=== PATIENT | female | born 1960 | race Caucasian/White ===

== ENCOUNTER → 2017-10-19 13:13 | Outpatient (CLI) | payer BC, SELFPAY ==
[2017-10-19 13:43] LABS: HCT 42.4 % (36.0-46.0); HGB 14.2 g/dL (12.0-15.5); Mean Corp. HGB Concentration 33.5 g/dL (32.0-36.0); Mean Corpuscular Hemoglobin 31.7 pg (27.0-33.0); Mean Corpuscular Volume 94.6 fL (80-95); Mean Platelet Volume 10.6 fL (8.0-11.0); Platelet Count 249 x1000/uL (130-400); RBC 4.48 m/cumm (4.00-5.20); White Blood Cell Count 8.29 k/cumm (4.4-10.8)
[2017-10-19 14:17] LABS: ALT 39 U/L (12-78); AST 17 U/L (15-37); Albumin 3.9 g/dL (3.4-5.0); Alkaline Phosphatase 80 U/L (46-116); BUN 20 mg/dL (7-18); Bilirubin, Total 0.2 mg/dL (0.2-1.0); CREATININE 1.33 mg/dL (0.55-1.02); Calcium 8.7 mg/dL (8.5-10.1); Chloride 104 mmol/L (98-107); Estimated GFR 41.12 (mL/min/1.73m2); Glucose 97 mg/dL (70-100); Potassium 3.9 mmol/L (3.5-5.1); Sodium 140 mmol/L (136-145); TSH (W/Ref FT4) 1.52 uIU/mL (0.358-3.74); Total Protein 7.4 g/dL (6.4-8.2)
== END ==
PROVIDERS: PCP Family Medicine; Visit Provider Nurse Practitioner Psychiatric/Mental Health
DX: F32.9 Major depressive disorder, single episode, unspecified (principal)
CPT/HCPCS: 36415; 80053; 85027; 84443

== ENCOUNTER 2018-03-10 09:52 | Emergency (ER) | payer BC, SELFPAY ==
[2018-03-10 09:56] VITALS: BP 117/64; PULSE 103; RESP 16; TEMP 36.8; O2SAT 100
--- NOTE | 2018-03-10 10:11 | W.ED.GENAD ---
Discharge Plan Disposition Patient Disposition: HOME Condition: Improving Discharge Details Chief Complaint: Cellulitis Clinical Impression: Cellulitis of suprapubic region Primary Care Provider: Shahla Ball ED Provider: Bobby Maria Home Meds and New Rx's Prescriptions: New amoxicillin-pot clavulanate 875-125 mg tablet 1 tab PO BID 10 Days Qty: 20 RF: 0 Continued duloxetine 20 mg capsule,delayed release(DR/EC) 20 mg PO DAILY Qty: 30 RF: 1 fluvoxamine 100 MG tablet 150 mg PO BID RF: 0 rlmkrvha-nucipcf-gfas-lutein [ESSENTIAL Balance with Lutein] 1 EACH tablet 1 ea PO QAM RF: 0 lamotrigine [Lamictal] 100 MG tablet 100 mg PO BID Qty: 60 RF: 0 aripiprazole [Abilify] 2 MG tablet 2 mg PO DAILY RF: 0 trazodone 100 MG tablet 200 mg PO HS Qty: 60 RF: 0 triamcinolone acetonide 15 GM cream 15 gm Topical BID Qty: 1 RF: 0 zuafvtlfyb-mlxmiastgnmqr-mpei 1 EACH tablet 1 - 2 tab PO Q8H PRN PRNQty: 25 RF: 1 methylphenidate HCl 10 mg tablet 10 mg PO BID RF: 0 methylphenidate HCl 5 mg tablet 5 mg PO QAM Qty: 60 RF: 0 ibuprofen 200 MG tablet 600 mg PO TID PRNRF: 0 alprazolam 2 mg tablet extended release 24 hr 1 mg PO HS RF: 0 Discharge Instructions Instructions: Abscess (ED) Additional Instructions: We will ask our care management team to help arrange follow-up for you in general surgery clinic for recheck. Please take antibiotics as prescribed. Return if you develop worsening discomfort, swelling, drainage from the area, fever, or any other acute concerns. Continue all of your regular medication Medical Decision Making 58-year-old female presents with induration and erythema of her mons pubis, which she states is similar to previous episodes of hidradenitis Yordan that required drainage. She has not have a fever, but is mildly tachycardic and tender to exam. IV placed, labs obtained, imaging study with CT ordered to evaluate for abscess versus fistulous tract or cellulitis and induration. Patient does have a mildly elevated white blood cell count, but there is no evidence of deep abscess or fluid collection. She is soft tissue stranding distant with the induration on exam. Given a dose of Unasyn in the emergency department and I will place her on a course of Augmentin. Given the question of hidradenitis of vertebral I will have her follow-up with general surgery and ask care management to arrange a follow-up. HPI General Mode of arrival: ambulatory. Date/Time Provider Initiated Documentation: 03/10/18 10:05. Limitations to Documentation: no limitations. Information obtained by: patient. History of Present Illness 58 year old F presents to the emergency department with the chief complaint of Cellulitis of the above pubis, described as moderate and similar to prior episodes, Quality is described as dull, and is localized to the abdomen and pelvis. Patient reports no radiation. Patient started experiencing this hour(s) and it has been constant. No relieving factors improve symptom(s), No exacerbating factors reported . Patient notes no other symptoms.. Patient did receive the following treatments prior to arrival, none Related Data Home Medications Medication Instructions Recorded Confirmed fluvoxamine 150 mg PO BID tab-cap 07/30/12 01/13/18 dqiransj-bwkrrox-pwdm-lutein 1 ea PO QAM 07/30/12 01/13/18 [ESSENTIAL Balance with Lutein] ibuprofen 600 mg PO TID PRN 01/02/14 01/13/18 lamotrigine [Lamictal] 100 mg PO BID #60 tab-cap 03/28/15 01/13/18 aripiprazole [Abilify] 2 mg PO DAILY 09/12/15 01/13/18 trazodone 200 mg PO HS #60 tab-cap 05/29/16 01/13/18 triamcinolone acetonide 15 gm TOPICAL BID #1 script 05/29/16 01/13/18 vsekyektyn-ffnvflvemaurj-xyzh 1 - 2 tab PO Q8H PRN PRN #25 12/17/16 01/13/18 tab-cap alprazolam ER 2 mg tablet,extended 1 mg PO HS tab 01/13/18 01/13/18 release 24 hr duloxetine 20 mg capsule,delayed 20 mg PO DAILY #30 cap 01/13/18 01/13/18 release methylphenidate 10 mg tablet 10 mg PO BID tab-cap 01/13/18 01/13/18 methylphenidate 5 mg tablet 5 mg PO QAM #60 tab-cap 01/13/18 01/13/18 amoxicillin-pot clavulanate 1 tab PO BID 10 Days #20 tab 03/10/18 Previous Rx's Medication Instructions Recorded duloxetine 20 mg capsule,delayed 20 mg PO DAILY #30 cap 01/13/18 release amoxicillin-pot clavulanate 1 tab PO BID 10 Days #20 tab 03/10/18 Allergies Allergy/AdvReac Type Severity Reaction Status Date / Time No Known Allergies Allergy Unverified 01/13/18 14:16 General Stated Complaint: Cellulitis ANGÉLICA: 3 Review of Systems Review of Systems 6 systems reviewed and otherwise neg [facility] Surgical History Ligation of fallopian tube Open Carpal Tunnel release (~11/2006) Tonsillectomy and adenoidectomy Vaginal hysterectomy (12/04/05) shoulder surgery Family History Son MDD (major depressive disorder) Trauma ADHD Daughter Depression Mother No problems noted. Father No problems noted. Sister No problems noted. Sister No problems noted. Sister No problems noted. Brother No problems noted. Brother No problems noted. Brother No problems noted. Brother No problems noted. Social History current occupational status: employed current occupation: NURSE pets and animals: Yes pets and animals: cat(s) and dog(s) frequency: does not exercise Smoking/Tobacco Use Status: Current every day tobacco type: cigarettes alcohol intake: current alcohol intake frequency: holidays/special occasions only sary/rastafarian: No preference special sary needs: No Exam Narrative Exam Narrative: GEN: awake, alert, oriented 3. Pleasant, well groomed, interactive. HEAD: Normocephalic, atraumatic ENT: Mucous membranes moist, oropharynx unremarkable, External ear exam unremarkable EYES: PERRL, EOMI NECK: Full ROM, no MAXX, no menigismus CHEST/RESP: Nontender, clear to auscultation bilateral, no wheeze/rhonchi/rales CARDIOVASCULAR: RRR, no murmur, rub anila. 2+ Rad pulse bilateral ABDOMEN: Soft, there is erythema, swelling, induration of the mons pubis and it is tender to palpation without rebound or guarding., no mass. +Bowel sounds EXT: Full ROM, no edema, no rash Neuro: Grossly normal neurologic exam, conversant, interactive. Psych: Speech fluent, thoughts congruent, affect normal Course Vital Signs Temperature 36.8 C 03/10/18 09:56 Pulse 103 H 03/10/18 09:56 Respiratory Rate 16 03/10/18 09:56 Blood Pressure 117/64 03/10/18 09:56 Pulse Oximetry 100 03/10/18 09:56 Temperature 36.8 C 03/10/18 09:56 Temperature Source Temporal Artery Scan 03/10/18 09:56 Pulse 103 H 03/10/18 09:56 Respiratory Rate 16 03/10/18 09:56 Respiratory Effort Non-Labored 03/10/18 09:56 Blood Pressure 117/64 03/10/18 09:56 Pulse Oximetry 100 03/10/18 09:56 Oxygen Delivery Method Room Air 03/10/18 09:56 Oxygen Flow Rate 0 03/10/18 09:56 Pain Level 6 03/10/18 09:56
--- NOTE | 2018-03-10 10:16 | ED.GENADUL_ITS ---
Discharge Plan Disposition Patient Disposition: HOME Condition: Improving Discharge Details Chief Complaint: Cellulitis Clinical Impression: Cellulitis of suprapubic region Primary Care Provider: Shahla Ball ED Provider: Bobby Maria Home Meds and New Rx's Prescriptions: New amoxicillin-pot clavulanate 875-125 mg tablet 1 tab PO BID 10 Days Qty: 20 RF: 0 Continued duloxetine 20 mg capsule,delayed release(DR/EC) 20 mg PO DAILY Qty: 30 RF: 1 fluvoxamine 100 MG tablet 150 mg PO BID RF: 0 jvdevepg-vqngude-pqpz-lutein [ESSENTIAL Balance with Lutein] 1 EACH tablet 1 ea PO QAM RF: 0 lamotrigine [Lamictal] 100 MG tablet 100 mg PO BID Qty: 60 RF: 0 aripiprazole [Abilify] 2 MG tablet 2 mg PO DAILY RF: 0 trazodone 100 MG tablet 200 mg PO HS Qty: 60 RF: 0 triamcinolone acetonide 15 GM cream 15 gm Topical BID Qty: 1 RF: 0 xyadhpycue-csqqrouktjvwb-zhfx 1 EACH tablet 1 - 2 tab PO Q8H PRN PRNQty: 25 RF: 1 methylphenidate HCl 10 mg tablet 10 mg PO BID RF: 0 methylphenidate HCl 5 mg tablet 5 mg PO QAM Qty: 60 RF: 0 ibuprofen 200 MG tablet 600 mg PO TID PRNRF: 0 alprazolam 2 mg tablet extended release 24 hr 1 mg PO HS RF: 0 Discharge Instructions Instructions: Abscess (ED) Additional Instructions: We will ask our care management team to help arrange follow-up for you in general surgery clinic for recheck. Please take antibiotics as prescribed. Return if you develop worsening discomfort, swelling, drainage from the area, fever, or any other acute concerns. Continue all of your regular medication Medical Decision Making 58-year-old female presents with induration and erythema of her mons pubis, whic h she states is similar to previous episodes of hidradenitis Yordan that required drainage. She has not have a fever, but is mildly tachycardic and tender to exam. IV placed, labs obtained, imaging study with CT ordered to evaluate for abscess versus fistulous tract or cellulitis and induration. Patient does have a mildly elevated white blood cell count, but there is no evidence of deep abscess or fluid collection. She is soft tissue stranding distant with the induration on exam. Given a dose of Unasyn in the emergency department and I will place her on a course of Augmentin. Given the question of hidradenitis of vertebral I will have her follow-up with general surgery and ask care management to arrange a follow-up. HPI General Mode of arrival: ambulatory . Date/Time Provider Initiated Documentation: 03/10/18 10:05 . Limitations to Documentation: no limitations . Information obtained by: patient . History of Present Illness 58 year old F presents to the emergency department with the chief complaint of Cellulitis of the above pubis, described as moderate and similar to prior episodes, Quality is described as dull, and is localized to the abdomen and pelvis. Patient reports no radiation. Patient started experiencing this hour(s) and it has been constant. No relieving factors improve symptom(s), No exacerbating factors reported . Patient notes no other symptoms.. Patient did receive the following treatments prior to arrival, none Related Data Home Medications Medication Instructions Recorded Confirmed fluvoxamine 150 mg PO BID tab-cap 07/30/12 01/13/18 qxdxwpfu-ejhpqxa-bald-lutein 1 ea PO QAM 07/30/12 01/13/18 [ESSENTIAL Balance with Lutein] ibuprofen 600 mg PO TID PRN 01/02/14 01/13/18 lamotrigine [Lamictal] 100 mg PO BID #60 tab-cap 03/28/15 01/13/18 aripiprazole [Abilify] 2 mg PO DAILY 09/12/15 01/13/18 trazodone 200 mg PO HS #60 tab-cap 05/29/16 01/13/18 triamcinolone acetonide 15 gm TOPICAL BID #1 script 05/29/16 01/13/18 fmtibexzvv-oaaxvwnbxcakl-lqyi 1 - 2 tab PO Q8H PRN PRN #25 12/17/16 01/13/18 tab-cap alprazolam ER 2 mg tablet,extended 1 mg PO HS tab 01/13/18 01/13/18 release 24 hr duloxetine 20 mg capsule,delayed 20 mg PO DAILY #30 cap 01/13/18 01/13/18 release methylphenidate 10 mg tablet 10 mg PO BID tab-cap 01/13/18 01/13/18 methylphenidate 5 mg tablet 5 mg PO QAM #60 tab-cap 01/13/18 01/13/18 amoxicillin-pot clavulanate 1 tab PO BID 10 Days #20 tab 03/10/18 Previous Rx's Medication Instructions Recorded duloxetine 20 mg capsule,delayed 20 mg PO DAILY #30 cap 01/13/18 release amoxicillin-pot clavulanate 1 tab PO BID 10 Days #20 tab 03/10/18 Allergies Allergy/AdvReac Type Severity Reaction Status Date / Time No Known Allergies Allergy Unverified 01/13/18 14:16 General Stated Complaint: Cellulitis ANGÉLICA: 3 Review of Systems Review of Systems 6 systems reviewed and otherwise neg [facility] Surgical History Ligation of fallopian tube Open Carpal Tunnel release (~11/2006) Tonsillectomy and adenoidectomy Vaginal hysterectomy (12/04/05) shoulder surgery Family History Son MDD (major depressive disorder) Trauma ADHD Daughter Depression Mother No problems noted. Father No problems noted. Sister No problems noted. Sister No problems noted. Sister No problems noted. Brother No problems noted. Brother No problems noted. Brother No problems noted. Brother No problems noted. Social History current occupational status: employed current occupation: NURSE pets and animals: Yes pets and animals: cat(s) and dog(s) frequency: does not exercise Smoking/Tobacco Use Status: Current every day tobacco type: cigarettes alcohol intake: current alcohol intake frequency: holidays/special occasions only sary/zoroastrianism: No preference special sary needs: No Exam Narrative Exam Narrative: GEN: awake, alert, oriented 3. Pleasant, well groomed, interactive. HEAD: Normocephalic, atraumatic ENT: Mucous membranes moist, oropharynx unremarkable, External ear exam unremarkable EYES: PERRL, EOMI NECK: Full ROM, no MAXX, no menigismus CHEST/RESP: Nontender, clear to auscultation bilateral, no wheeze/rhonchi/rales CARDIOVASCULAR: RRR, no murmur, rub anila. 2+ Rad pulse bilateral ABDOMEN: Soft, there is erythema, swelling, induration of the mons pubis and it is tender to palpation without rebound or guarding., no mass. +Bowel sounds EXT: Full ROM, no edema, no rash Neuro: Grossly normal neurologic exam, conversant, interactive. Psych: Speech fluent, thoughts congruent, affect normal Course Vital Signs Temperature 36.8 C 03/10/18 09:56 Pulse 103 H 03/10/18 09:56 Respiratory Rate 16 03/10/18 09:56 Blood Pressure 117/64 03/10/18 09:56 Pulse Oximetry 100 03/10/18 09:56 Temperature 36.8 C 03/10/18 09:56 Temperature Source Temporal Artery Scan 03/10/18 09:56 Pulse 103 H 03/10/18 09:56 Respiratory Rate 16 03/10/18 09:56 Respiratory Effort Non-Labored 03/10/18 09:56 Blood Pressure 117/64 03/10/18 09:56 Pulse Oximetry 100 03/10/18 09:56 Oxygen Delivery Method Room Air 03/10/18 09:56 Oxygen Flow Rate 0 03/10/18 09:56 Pain Level 6 03/10/18 09:56
[2018-03-10] MEDS: Lactated Ringers 1,000 ML 125 ML IV (10:31)
[2018-03-10] MEDS: Ketorolac 30 MG/ML VIAL IVP (10:31)
[2018-03-10 10:47] VITALS: BP 98/59; PULSE 84; RESP 18; TEMP 36.4; O2SAT 96
[2018-03-10 10:49] LABS: Abs Immature Grans 0.07 k/cumm (0.0-0.09); Absolute Basophil Count 0.04 k/cumm (0.0-0.2); Absolute Eosinophil Count 0.31 k/cumm (0.0-0.7); Absolute Lymphocyte Count 2.07 k/cumm (1.2-3.4); Basophils % 0.3; Eosinophils % 2.4; HCT 44.4 % (36.0-46.0); HGB 14.5 g/dL (12.0-15.5); Immature Grans % 0.5; Lymphocytes % 16.2; Mean Corp. HGB Concentration 32.7 g/dL (32.0-36.0); Mean Corpuscular Hemoglobin 30.7 pg (27.0-33.0); Mean Corpuscular Volume 94.1 fL (80-95); Mean Platelet Volume 10.5 fL (8.0-11.0); Monocytes % 7.1; Neutrophils % 73.5; Platelet Count 243 x1000/uL (130-400); RBC 4.72 m/cumm (4.00-5.20); RBC Distribution Width 13.5 % (11.7-14.6); White Blood Cell Count 12.75 k/cumm (4.4-10.8)
[2018-03-10 10:50] LABS: Absolute Monocyte Count 0.91 k/cumm (0.11-0.7); Absolute Neutrophil Count 9.37 k/cumm (1.2-6.7)
[2018-03-10 11:01] LABS: ALT 39 U/L (12-78); AST 19 U/L (15-37); Albumin 3.6 g/dL (3.4-5.0); Alkaline Phosphatase 86 U/L (46-116); Anion Gap 10.4 mmol/L (3-11); BUN 17 mg/dL (7-18); Bilirubin, Total 0.4 mg/dL (0.2-1.0); CO2 25.6 mmol/L (21.0-32.0); CREATININE 0.92 mg/dL (0.55-1.02); Calcium 8.8 mg/dL (8.5-10.1); Chloride 103 mmol/L (98-107); Glucose 121 mg/dL (70-100); Potassium 3.3 mmol/L (3.5-5.1); Sodium 139 mmol/L (136-145); Total Protein 7.9 g/dL (6.4-8.2)
--- NOTE | 2018-03-10 11:40 | NUR.NOTE ---
Nursing Note: No acute changes, awaiting CT. Pt with noted redness and swelling to groin area, states hx of cellulitis to area. will continue to monitor.
--- NOTE | 2018-03-10 12:17 | NUR.NOTE ---
Nursing Note: Off unit to CT
--- NOTE | 2018-03-10 12:39 | DI.CT_ITS ---
SYMPTOMS/DIAGNOSIS: CELLULITIS, ERYTHEMA, MONS PUBIS ABDOMINAL AND PELVIC CT: CT examination of the abdomen and pelvis was performed with intravenous infusion of 100 cc Omnipaque 350. Images obtained through the lung bases are unremarkable. Liver, spleen and pancreas appear normal. No biliary dilatation. The gallbladder is contracted but otherwise normal. Abdominal aorta is of normal diameter and no major vascular abnormality is seen. Incidental note is made of horseshoe kidney, no evidence of urinary tract calcification or obstruction. The adrenal glands appear mildly hypertrophied bilaterally without evidence of a mass. Appendix is normal. Colonic diverticulosis noted without evidence of diverticulitis. No abdominal or pelvic adenopathy seen apart from a couple of mildly enlarged inguinal lymph nodes bilaterally. There is soft tissue edema in the region of the mons pubis superficially with no gross abscess formation. No significant abdominal wall hernia seen. CONCLUSION: Findings consistent with the clinical diagnosis of superficial cellulitis of the region of the mons pubis. No abscess identified. No other acute findings.
[2018-03-10] MEDS: Omnipaque 350 MG/ML 100 ML BTL IJ (12:42)
[2018-03-10] MEDS: AMPICILLIN/SULBACTAM 3 GM in Normal Saline 100 ML IVPB (13:20)
[2018-03-10] MEDS: Lactated Ringers 1,000 ML 1000 ML IV (13:23)
[2018-03-10 13:46] VITALS: BP 129/55; PULSE 73; RESP 18; TEMP 36.3; O2SAT 98
== END 2018-03-10 14:06 | disposition home or self-care (01) ==
PROVIDERS: Emergency Provider Emergency Medicine; PCP Family Medicine
DX: L03.818 Cellulitis of other sites (principal); Z86.19 Personal history of other infectious and parasitic diseases
CPT/HCPCS: 36415; 80053; 96361; 96365; 96374; 96375; 99284; 74177; 85025; 99283; J0295; J1885; J3490

== ENCOUNTER 2018-03-31 16:17 | Inpatient (IN) | payer MEDICARE, BC, SELFPAY ==
[2018-03-31] VITALS (15 sets, daily range): BP systolic 89–137; BP diastolic 46–82; PULSE 67–96; RESP 12–19; TEMP 36.1–37.2; O2SAT 93–99
--- NOTE | 2018-03-31 16:28 | ED.GENADUL_ITS ---
Discharge Plan Disposition Patient Disposition: [facility] INPATIENT Condition: Stable Discharge Details Chief Complaint: Abd Prob Clinical Impression: Acute appendicitis Reason For Visit: abd pain Primary Care Provider: Shahla Ball ED Provider: Jose M Shen Home Meds and New Rx's Prescriptions: No Action duloxetine 20 mg capsule,delayed release(DR/EC) 20 mg PO DAILY Qty: 30 RF: 1 fluvoxamine 100 MG tablet 150 mg PO BID RF: 0 ESSENTIAL Balance with Lutein 1 EACH tablet 1 ea PO QAM RF: 0 lamotrigine [Lamictal] 100 MG tablet 100 mg PO BID Qty: 60 RF: 0 aripiprazole [Abilify] 2 MG tablet 2 mg PO DAILY RF: 0 trazodone 100 MG tablet 200 mg PO HS Qty: 60 RF: 0 methylphenidate HCl 10 mg tablet 10 mg PO BID RF: 0 methylphenidate HCl 5 mg tablet 5 mg PO QAM Qty: 60 RF: 0 ibuprofen 200 MG tablet 600 mg PO TID PRNRF: 0 alprazolam 2 mg tablet extended release 24 hr 1 mg PO HS RF: 0 Medical Decision Making Patient presenting to the emergency department after referral from primary care provider for concern of appendicitis. Patient states that approximately 5 days ago she had some development of abdominal pain, nausea vomiting and diarrhea. Nausea vomiting and diarrhea have subsided but she has had persistent right lower quadrant pain and loss of appetite that has become significant over the past couple days. She denies any fever chills or other symptoms at this time. Physical exam does show McBurney's point tenderness along with roving sign otherwise unremarkable cardiac respiratory and skin exam. Given right lower quadrant tenderness I do feel that radiological imaging is warranted along with labs for evaluation. Pending results patient given IV fluids, ketorolac, and Zofran. Review of labs shows no significant leukocytosis signs of dehydration otherwise no significant elevation of lipase, liver function normal, otherwise unremarkable nondiagnostic labs. Patient reassessed and still has some discomfort pending CT imaging so patient ordered morphine. Review of CT imaging shows acute appendicitis. Review of radiologist interpretation and speaking with radiologist also agrees with this. Dr. Castillo was consulted for consideration of surgical removal of appendix. Patient was in agreement with this plan of care and patient admitted to OR/general surgery services. HPI General Mode of arrival: ambulatory . Date/Time Provider Initiated Documentation: 03/31/18 16:17 . Limitations to Documentation: no limitations . Information obtained by: patient, RN notes reviewed and old records reviewed . History of Present Illness 58 year old F presents to the emergency department with the chief complaint of Abd pain, described as moderate, with intensity rated at 5. Quality is described as aching and sharp, and is localized to the abdomen and right. Patient reports no radiation. Patient started experiencing this day(s) (5) and it has been constant. No relieving factors improve symptom(s), No exacerbating factors reported . Patient did receive the following treatments prior to arrival, none Related Data Home Medications Medication Instructions Recorded Confirmed ESSENTIAL Balance with Lutein 1 ea PO QAM 07/30/12 03/31/18 fluvoxamine 150 mg PO BID tab-cap 07/30/12 03/31/18 ibuprofen 600 mg PO TID PRN 01/02/14 03/31/18 lamotrigine [Lamictal] 100 mg PO BID #60 tab-cap 03/28/15 03/31/18 aripiprazole [Abilify] 2 mg PO DAILY 09/12/15 03/31/18 trazodone 200 mg PO HS #60 tab-cap 05/29/16 03/31/18 alprazolam ER 2 mg tablet,extended 1 mg PO HS tab 01/13/18 03/31/18 release 24 hr duloxetine 20 mg capsule,delayed 20 mg PO DAILY #30 cap 01/13/18 03/31/18 release methylphenidate 10 mg tablet 10 mg PO BID tab-cap 01/13/18 03/31/18 methylphenidate 5 mg tablet 5 mg PO QAM #60 tab-cap 01/13/18 03/31/18 Previous Rx's Medication Instructions Recorded duloxetine 20 mg capsule,delayed 20 mg PO DAILY #30 cap 01/13/18 release Allergies Allergy/AdvReac Type Severity Reaction Status Date / Time No Known Allergies Allergy Verified 03/31/18 16:31 General Stated Complaint: Abd Prob ANGÉLICA: 3 Review of Systems Constitutional Denies chills, Denies fever(s) and Reports poor appetite Cardiovascular Denies chest pain and Denies dyspnea Respiratory Denies dyspnea Gastrointestinal Reports as per HPI, Reports abdominal pain, Denies melena, Denies change in bowel habits, Denies constipation, Reports diarrhea, Reports nausea and Reports vomiting Genitourinary Denies hematuria, Denies urinary incontinence, Denies urinary hesitancy and Denies urinary urgency Integumentary/Breasts Denies rash [facility] Medical History Cellulitis (Acute) Gastro-esophageal reflux (Acute) Smoker (Acute) Primary fibromyalgia syndrome (Acute) Panic attack (Acute) Irritable colon (Acute) Hot flash, menopausal (Acute) Depressive disorder (Acute 06/30/08) Surgical History Ligation of fallopian tube Open Carpal Tunnel release (~11/2006) Tonsillectomy and adenoidectomy Vaginal hysterectomy (12/04/05) shoulder surgery Family History Son MDD (major depressive disorder) Trauma ADHD Daughter Depression Mother No problems noted. Father No problems noted. Sister No problems noted. Sister No problems noted. Sister No problems noted. Brother No problems noted. Brother No problems noted. Brother No problems noted. Brother No problems noted. Social History current occupational status: employed current occupation: NURSE pets and animals: Yes pets and animals: cat(s) and dog(s) frequency: does not exercise Smoking/Tobacco Use Status: Current every day tobacco type: cigarettes alcohol intake: current alcohol intake frequency: holidays/special occasions only sary/yazidi: No preference special sary needs: No Exam Const General: cooperative Orientation: alert, awake and oriented x3 Resp Effort & Inspection: normal respiratory effort and able to speak in complete sentences Auscultation: clear to auscultation bilaterally Cardio Rate: regular rate Rhythm: regular rhythm Heart Sounds: S1 normal and S2 normal GI Palpation: soft, no hepatosplenomegaly, not firm, no guarding, no masses, no pulsatile masses, not rigid, no splenomegaly and tender in the RLQ, at McBurney's point and Rovsing's sign positive; Pinzon's sign negative Auscultation: normal bowel sounds Back/Spine/Pelvis Back: no CVA tenderness Neuro General: alert, awake, oriented x3, gait normal and moves all extremities
[2018-03-31 16:36] LABS: Bilirubin Negative (Negative); Blood Trace-lysed (Negative); Clarity Clear; Glucose Negative (Negative); Ketones Negative (Negative); Leukocyte Esterase Negative (Negative); Nitrite Negative (Negative); Specific Gravity >= 1.030 (1.005-1.025); Urobilinogen 0.2 EU/dL (Up TO 0.2); pH 5.5 (5-8)
[2018-03-31 16:47] LABS: Bacteria Rare HPF (Negative); C & S Indicated? No; Casts Negative LPF (Negative); Crystals Negative HPF (Negative); Epithelial Cells Rare HPF (Negative); Mucus Negative (Negative); Other Cells Negative (Negative); RBC 0-2 (0-2); WBC 0-2 HPF (0-5)
[2018-03-31 16:50] LABS: Abs Immature Grans 0.06 k/cumm (0.0-0.09); Absolute Basophil Count 0.05 k/cumm (0.0-0.2); Absolute Eosinophil Count 0.41 k/cumm (0.0-0.7); Absolute Lymphocyte Count 2.73 k/cumm (1.2-3.4); Absolute Monocyte Count 0.83 k/cumm (0.11-0.7); Absolute Neutrophil Count 5.27 k/cumm (1.2-6.7); Basophils % 0.5; Eosinophils % 4.4; HGB 14.6 g/dL (12.0-15.5); Immature Grans % 0.6; Lymphocytes % 29.2; Mean Corp. HGB Concentration 32.4 g/dL (32.0-36.0); Mean Corpuscular Hemoglobin 30.6 pg (27.0-33.0); Mean Corpuscular Volume 94.3 fL (80-95); Mean Platelet Volume 10.2 fL (8.0-11.0); Monocytes % 8.9; Neutrophils % 56.4; Platelet Count 290 x1000/uL (130-400); RBC 4.77 m/cumm (4.00-5.20); RBC Distribution Width 13.6 % (11.7-14.6); White Blood Cell Count 9.35 k/cumm (4.4-10.8)
[2018-03-31] MEDS: Normal Saline 1,000 ML 1000 ML IV (16:53)
[2018-03-31] MEDS: Ondansetron 4 MG/2 ML VIAL IVP (16:54)
[2018-03-31] MEDS: Ketorolac 30 MG/ML VIAL IVP (17:00)
[2018-03-31 17:03] LABS: ALT 29 U/L (12-78); AST 16 U/L (15-37); Albumin 3.8 g/dL (3.4-5.0); Alkaline Phosphatase 84 U/L (46-116); Anion Gap 10.5 mmol/L (3-11); BUN 20 mg/dL (7-18); Bilirubin, Total 0.4 mg/dL (0.2-1.0); CO2 27.5 mmol/L (21.0-32.0); CREATININE 1.03 mg/dL (0.55-1.02); Calcium 9.7 mg/dL (8.5-10.1); Chloride 102 mmol/L (98-107); Estimated GFR 55.04 (mL/min/1.73m2); Glucose 89 mg/dL (70-100); Lipase 179 U/L (73-393); Potassium 3.7 mmol/L (3.5-5.1); Sodium 140 mmol/L (136-145); Total Protein 8.5 g/dL (6.4-8.2)
--- NOTE | 2018-03-31 17:43 | DI.CT_ITS ---
SYMPTOM/DIAGNOSIS: RLQ PAIN ABDOMEN AND PELVIC CT: CT scan of the abdomen and pelvis was performed following the uneventful administration of intravenous contrast material. The findings are compared with examination from 03/10/18. There are dependent atelectatic changes in the lungs. The liver is normal in size. No hepatic mass is seen. The portal, superior mesenteric and splenic veins are patent. The gallbladder is negative. No biliary ductal dilatation is seen. The pancreas and spleen are unremarkable. There are stable bilateral adrenal nodules. There is a horseshoe kidney. No evidence of a solid renal mass or obstruction is present. The urinary bladder is intact. The patient appears to be status post hysterectomy. Please correlate clinically. The appendix is distended measuring 1.3 cm. in diameter. There is an enhancing wall and tika-appendiceal inflammatory changes. No focal fluid collection is seen to suggest an abscess. No pneumoperitoneum is present. There are findings of diverticulosis of the colon but no evidence of acute diverticulitis. The remainder of the bowel is unremarkable. There is atherosclerosis of the abdominal aorta but no aneurysmal dilatation. Incidental note is made of a retro-aortic left renal vein. No significant abdominal or pelvic adenopathy, ascites or pneumoperitoneum is seen. Degenerative changes are seen in the spine. IMPRESSION: Findings consistent with acute appendicitis. No abscess or pneumoperitoneum is present.
[2018-03-31] MEDS: Omnipaque 350 MG/ML 100 ML BTL IJ (17:46)
--- NOTE | 2018-03-31 17:54 | NUR.NOTE ---
patients pain imrpoved at rest and reported some nausea during the CT, no vomiting Nursing Note:
--- NOTE | 2018-03-31 18:30 | DI.VRAD_ITS ---
EXAM: CT Abdomen and Pelvis With Contrast EXAM DATE/TIME: 03/31/2018 4:27 PM CLINICAL HISTORY: 58 years old, female; Pain; Abdominal pain; Localized; Right lower quadrant (rlq) TECHNIQUE: Axial computed tomography images of the abdomen and pelvis with intravenous contrast. Coronal and sagittal reformatted images were created and reviewed. CONTRAST: 100 ml of Omnipaque 350 administered intravenously. COMPARISON: CT Abdomen^ROUTINE ABDOMEN PELVIS WITH CONTRAST (Adult) 03/10/2018 12:23 PM FINDINGS: Lower thorax: The visualized portions of the heart and pericardium are unremarkable. There are dependent atelectatic changes at the lung bases. ABDOMEN: Liver: The liver is within normal limits. Gallbladder and bile ducts: The gallbladder is unremarkable. Pancreas: The pancreas is within normal limits. Spleen: The spleen is within normal limits. Adrenals: The is a small right adrenal adenoma measuring approximately 2.0 x 0.9 cm. There is a larger left adrenal measuring 2.9 x 1.6 cm. 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 Stomach and bowel: There is no evidence of bowel obstruction. There are diverticuli of the descending and sigmoid colon. Appendix: The appendix is enlarged measuring 1.3 cm in length. The wall of the appendix is enhancing. There is periappendiceal inflammation of the mesenteric fat. These findings are consistent with acute appendicitis. PELVIS: Bladder: The urinary bladder is unremarkable. Reproductive: The patient is status post hysterectomy. ABDOMEN and PELVIS: Intraperitoneal space: Normal. No free air. No significant fluid collection. Bones/joints: There is degenerative disc disease at L5-S1. There are degenerative changes of the thoracic and lumbar spines. Soft tissues: Unremarkable. Vasculature: There are arteriosclerotic changes of the aorta. There is a retroaortic left renal vein. Lymph nodes: No enlarged lymph nodes. IMPRESSION: Acute appendicitis as described above. Status post hysterectomy. Osseous findings as above. Bilateral adrenal adenomas. Horseshoe shaped kidney. OSITO Shen was made aware of this critical finding on 03/31/18 at 6:28 PM. Dictated and Authenticated by: Segun Cervantes MD. Ordering:FLETCHER Salguero MD
--- NOTE | 2018-03-31 18:35 | HPE_ITS ---
Date of service: 03/31/18 Time of Service: 18:30 Assessment and Plan (1) Right lower quadrant pain: Start date: 03/31/18 Start time: 18:33 Current visit: Yes Status: Acute ct wbc PE (2) Acute appendicitis: Start date: 03/31/18 Start time: 18:33 Current visit: Yes Status: Acute OR consent obtained History of Present Illness Chief Complaint: abd pain since thursday Consults Consult date: 03/31/18 Review of Systems Constitutional Reports as per HPI and Reports poor appetite Gastrointestinal Reports as per HPI, Reports abdominal pain, Reports nausea and Reports vomiting PFSH Surgical History Ligation of fallopian tube Open Carpal Tunnel release (~11/2006) Tonsillectomy and adenoidectomy Vaginal hysterectomy (12/04/05) shoulder surgery Family History Son MDD (major depressive disorder) Trauma ADHD Daughter Depression Mother No problems noted. Father No problems noted. Sister No problems noted. Sister No problems noted. Sister No problems noted. Brother No problems noted. Brother No problems noted. Brother No problems noted. Brother No problems noted. Social History current occupational status: employed current occupation: NURSE pets and animals: Yes pets and animals: cat(s) and dog(s) frequency: does not exercise Smoking/Tobacco Use Status: Current every day tobacco type: cigarettes alcohol intake: current alcohol intake frequency: holidays/special occasions only sary/anabaptism: No preference special sary needs: No Meds Home Medications Medication Instructions Recorded Confirmed Type ESSENTIAL Balance with Lutein 1 ea PO QAM 07/30/12 03/31/18 History fluvoxamine 150 mg PO BID tab-cap 07/30/12 03/31/18 History ibuprofen 600 mg PO TID PRN 01/02/14 03/31/18 History lamotrigine [Lamictal] 100 mg PO BID #60 tab-cap 03/28/15 03/31/18 History aripiprazole [Abilify] 2 mg PO DAILY 09/12/15 03/31/18 History trazodone 200 mg PO HS #60 tab-cap 05/29/16 03/31/18 History alprazolam ER 2 mg tablet,extended 1 mg PO HS tab 01/13/18 03/31/18 History release 24 hr duloxetine 20 mg capsule,delayed 20 mg PO DAILY #30 cap 01/13/18 03/31/18 Rx release methylphenidate 10 mg tablet 10 mg PO BID tab-cap 01/13/18 03/31/18 History methylphenidate 5 mg tablet 5 mg PO QAM #60 tab-cap 01/13/18 03/31/18 History Allergies Allergy/AdvReac Type Severity Reaction Status Date / Time No Known Allergies Allergy Verified 03/31/18 16:31 Exam Const General: cooperative Nutritional Appearance: obese Orientation: alert, awake and oriented x3 GI Inspection: normal to inspection Palpation: firm, guarding and tender in the RLQ Percussion: tympanic to percussion Auscultation: hypoactive bowel sounds Abdomen image: 1. pain Results Labs : 03/31/18 16:37 03/31/18 16:37 Laboratory Results - last 24 hr 03/31/18 03/31/18 03/31/18 16:20 16:37 16:37 WBC 9.35 RBC 4.77 Hgb 14.6 Hct 45.0 MCV 94.3 MCH 30.6 MCHC 32.4 RDW 13.6 Plt Count 290 MPV 10.2 Immature Gran % 0.6 Neutrophils % 56.4 Lymphocytes % 29.2 Monocytes % 8.9 Eosinophils % 4.4 Basophils % 0.5 Absolute Neutrophils 5.27 Absolute Lymphocytes 2.73 Absolute Monocytes 0.83 H Absolute Eosinophils 0.41 Absolute Basophils 0.05 Sodium 140 Potassium 3.7 Chloride 102 Carbon Dioxide 27.5 Anion Gap 10.5 BUN 20 H Creatinine 1.03 H Estimated GFR/1.73 m2 55.04 Glucose 89 Calcium 9.7 Magnesium 2.0 Total Bilirubin 0.4 AST 16 ALT 29 Alkaline Phosphatase 84 Total Protein 8.5 H Albumin 3.8 Lipase 179 Urine Color Yellow Urine Clarity Clear Urine pH 5.5 Ur Specific [place] >= 1.030 H Urine Protein Negative Urine Ketones Negative Urine Blood Trace-lysed H Urine Nitrite Negative Urine Bilirubin Negative Urine Urobilinogen 0.2 Ur Leukocyte Esterase Negative Urine RBC 0-2 Urine WBC 0-2 Ur Epithelial Cells Rare Urine Crystals Negative Urine Bacteria Rare Urine Casts Negative Urine Mucus Negative Urine Other Negative Ur Culture Indicated? No Urine Glucose Negative Last Vital Signs Temp 36.7 C 03/31/18 17:55 Pulse 77 03/31/18 18:26 Resp 18 03/31/18 18:26 BP 104/56 L 03/31/18 18:26 Pulse Ox 96 03/31/18 18:26
--- NOTE | 2018-03-31 18:53 | NUR.NOTE ---
patient medicated per MD order, antibiotic came from pharmacy Nursing Note:
[2018-03-31] MEDS: Lactated Ringers 1,000 ML 100 ML IV ×2 (19:19→23:00)
[2018-03-31] MEDS: Lidocaine 2% Pres-Free 5 ML VIAL (19:58)
[2018-03-31] MEDS: Bupivacaine 0.5% Pres-Free 30 ML VIAL (19:58)
--- NOTE | 2018-03-31 20:01 | NUR.NOTE ---
at 1915 patient was transfered to OR, report given to OR group, patient's took home patient's [facility] Nursing Note:
--- NOTE | 2018-03-31 21:19 | APP_PTH ---
PATIENT: Wendy Quezada LOC: U#:[id number] AGE/SX: 58/F ROOM: 215 RE03/31/[address]: Epifanio Castillo III : 1960 BED: A DIS: 04/01/2018 SPEC #: [id number] RECD: 04/01/18 12:55 STATUS: SOUIsaiah REQ #: [id number] TRACY: 03/31/18 21:[address]: Epifanio Castillo III DEPT: Surgical Specimen RECD BY: Georgiana Reyes ENTERED: 04/01/18 12:55 SP TYPE: Appendix OTHR DR: Shahla Ball MD Tissues: 1 - APPENDIX NOT INCIDENTAL Procedures: GROSS AND MICRO LEVEL 3 Comments: [id number]
--- NOTE | 2018-03-31 21:46 | ROE_ITS ---
Date of service: 03/31/18 Time of Service: 21:41 Operative Note DATE OF PROCEDURE: 03/31/18 PRE-OP DIAGNOSIS: acute appendicitis POST-OP DIAGNOSIS: other (Acute gangrenous appendicitis) PROCEDURE: Laparoscopic appendectomy SURGEON: Epifanio Castillo III ANESTHESIA: GETA ESTIMATED BLOOD LOSS: 20 PATHOLOGY: other (Appendix) COMPLICATIONS: None Patient was transported to: PACU Patient's condition: stable Indications: Acute appendicitis Findings: Upon entering the abdomen patient was found to have a gangrenous appendix with multiple adhesions with no signs of perforation Procedure Description: Patient was seen in the ED and physical exam as well as CAT scan revealed an acute appendicitis. Patient was explained the risk benefits alternatives and consent was obtained. Patient was brought to the operating room and placed on the operating table in supine fashion patient on general anesthesia endotracheal intubation. Thorough timeout was done with the entire or staff present. Patient's left arm was tucked to allow for the surgery to be performed on the left side of the patient. Patient had the abdomen prepped and draped in a sterile fashion and a local anesthetic was infiltrated into the infraumbilical area of the abdomen and a 2 cm incision on the infra umbilical aspect of the umbilicus was made with sharp dissection down to the level of the subcutaneous tissue this was dissected down to the fascia the fascia was incised with a 15 blade and the abdomen entered at this time. Stay s utures were placed on the fascia and a Villanueva trocar was inserted into the abdomen. The abdomen was insufflated to 50 mmHg at this time and the camera was inserted through the 12 mm Villanueva port that was inserted. Under direct vision 2 additional 5 mm midline ports were placed. Upon entering the abdomen the appendix was identified with multiple adhesions to the anterior and lateral abdominal wall patient had additional adhesions of small bowel to the anterior abdominal wall that required take down with EndoShears. Patient's appendix was gangrenous and intimately adherent to the surrounding fat and cecum. A meticulous dissection was made with very difficult identification of the appendix itself as well as the mesoappendix. After prolonged dissection the base was identified and a [place] clamp was used to isolate the base and Endo YONG was inserted and transected the base of the appendix at this point the mesoappendix which was still grossly adherent to the underlying structures had a meticulous and gentle dissection of all tissues with multiple clips used on arteries to control the appendiceal artery. At the point where the mesoappendix was identified and total a Endo YONG was used to transect the remainder of the mesoappendix. The appendix itself was placed in Endo Catch bag patient had copious irrigation of the abdomen with 2 L of fluid. Patient had inspection of the area where the gangrenous appendix was dissected out and all appeared to be clean of any bleeding and no need for any drain with lack of any perforation. The appendix was removed to the umbilicus all ports were removed under direct vision. Patient had the fascia with the stay sutures approximated closing the umbilical fascial. Patient had interrupted suture and Monocryl suture with Dermabond at the skin level for closure. Patient's family including him and samir Veliza were contacted by phone and explained the intraoperative findings and the operation itself. A thorough debriefing was done with the entire or staff present.
--- NOTE | 2018-04-01 07:10 | PGE_ITS ---
Date of Service Date of service: 04/01/18 Time of Service: 07:06 Assessment and Plan (1) Acute gangrenous appendicitis: Start date: 04/01/18 Start time: 07:08 Current visit: Yes Status: Acute pt eating toast ready to go home Subjective Patient reports: no new complaints Exam Const General: cooperative Orientation: alert, awake and oriented x3 GI Inspection: normal to inspection and incision Palpation: soft Percussion: normal to percussion Auscultation: normal bowel sounds Abdomen image: 1. incisions 2. 3. Objective Objective Clinical Data: Abnormal lab results 03/31/18 03/31/18 03/31/18 Range/Units 16:20 16:37 16:37 Absolute Monocytes 0.83 H (0.11-0.7) k/cumm BUN 20 H (7-18) mg/dL Creatinine 1.03 H (0.55-1.02) mg/dL Total Protein 8.5 H (6.4-8.2) g/dL Ur Specific [place] >= 1.030 H (1.005-1.025) Urine Blood Trace-lysed H (Negative) Vital Signs Temperature 36.5 C 03/31/18 22:40 Temperature Source Skin 03/31/18 17:55 Pulse 67 03/31/18 22:40 Pulse Rhythm Regular 03/31/18 22:40 Respiratory Rate 19 03/31/18 22:40 Respiratory Effort Non-Labored 03/31/18 22:40 Respiratory Depth Normal 03/31/18 22:40 Respiratory Pattern Normal 03/31/18 22:40 Blood Pressure 115/73 03/31/18 22:40 Blood Pressure Mean 67 03/31/18 18:20 Pulse Oximetry 93 L 03/31/18 22:40 Respiratory End-tidal CO2 45 03/31/18 22:16 Oxygen Delivery Method Room Air 03/31/18 22:40 Oxygen Flow Rate 0 03/31/18 22:40 Pain Level 0 03/31/18 22:40 Intake & Output 03/31/18 03/31/18 04/01/18 11:59 23:59 11:59 Intake Total 993 / 993 Output Total 450 / 450 Balance 973 / 973 -450 / -450 Weight 98.43 kg Intake: IV 993 / 993 Output: Urine 450 / 450 Estimated Blood Loss Other: Urine Color Light Lily Urine Appearance Clear Urine Odor Normal Emesis Description None Voiding Methods Toilet Laboratory Results WBC 9.35 k/cumm (4.4-10.8) 03/31/18 16:37 RBC 4.77 m/cumm (4.00-5.20) 03/31/18 16:37 Hgb 14.6 g/dL (12.0-15.5) 03/31/18 16:37 Hct 45.0 % (36.0-46.0) 03/31/18 16:37 MCV 94.3 fL (80-95) 03/31/18 16:37 MCH 30.6 pg (27.0-33.0) 03/31/18 16:37 MCHC 32.4 g/dL (32.0-36.0) 03/31/18 16:37 RDW 13.6 % (11.7-14.6) 03/31/18 16:37 Plt Count 290 x1000/uL (130-400) 03/31/18 16:37 MPV 10.2 fL (8.0-11.0) 03/31/18 16:37 Immature Gran % 0.6 03/31/18 16:37 Neutrophils % 56.4 03/31/18 16:37 Lymphocytes % 29.2 03/31/18 16:37 Monocytes % 8.9 03/31/18 16:37 Eosinophils % 4.4 03/31/18 16:37 Basophils % 0.5 03/31/18 16:37 Absolute Neutrophils 5.27 k/cumm (1.2-6.7) 03/31/18 16:37 Absolute Lymphocytes 2.73 k/cumm (1.2-3.4) 03/31/18 16:37 Absolute Monocytes 0.83 k/cumm (0.11-0.7) H 03/31/18 16:37 Absolute Eosinophils 0.41 k/cumm (0.0-0.7) 03/31/18 16:37 Absolute Basophils 0.05 k/cumm (0.0-0.2) 03/31/18 16:37 Sodium 140 mmol/L (136-145) 03/31/18 16:37 Potassium 3.7 mmol/L (3.5-5.1) 03/31/18 16:37 Chloride 102 mmol/L (98-107) 03/31/18 16:37 Carbon Dioxide 27.5 mmol/L (21.0-32.0) 03/31/18 16:37 Anion Gap 10.5 mmol/L (3-11) 03/31/18 16:37 BUN 20 mg/dL (7-18) H 03/31/18 16:37 Creatinine 1.03 mg/dL (0.55-1.02) H 03/31/18 16:37 Estimated GFR/1.73 m2 55.04 (mL/min/1.73m2) 03/31/18 16:37 Glucose 89 mg/dL (70-100) 03/31/18 16:37 Calcium 9.7 mg/dL (8.5-10.1) 03/31/18 16:37 Magnesium 2.0 mg/dL (1.8-2.4) 03/31/18 16:37 Total Bilirubin 0.4 mg/dL (0.2-1.0) 03/31/18 16:37 AST 16 U/L (15-37) 03/31/18 16:37 ALT 29 U/L (12-78) 03/31/18 16:37 Alkaline Phosphatase 84 U/L (46-116) 03/31/18 16:37 Total Protein 8.5 g/dL (6.4-8.2) H 03/31/18 16:37 Albumin 3.8 g/dL (3.4-5.0) 03/31/18 16:37 Lipase 179 U/L (73-393) 03/31/18 16:37 Urine Color Yellow (Yellow) 03/31/18 16:20 Urine Clarity Clear 03/31/18 16:20 Urine pH 5.5 (5-8) 03/31/18 16:20 Ur Specific [place] >= 1.030 (1.005-1.025) H 03/31/18 16:20 Urine Protein Negative mg/dL (Negative) 03/31/18 16:20 Urine Ketones Negative mg/dL (Negative) 03/31/18 16:20 Urine Blood Trace-lysed (Negative) H 03/31/18 16:20 Urine Nitrite Negative (Negative) 03/31/18 16:20 Urine Bilirubin Negative (Negative) 03/31/18 16:20 Urine Urobilinogen 0.2 EU/dL (Up TO 0.2) 03/31/18 16:20 Ur Leukocyte Esterase Negative (Negative) 03/31/18 16:20 Urine RBC 0-2 (0-2) 03/31/18 16:20 Urine WBC 0-2 HPF (0-5) 03/31/18 16:20 Ur Epithelial Cells Rare HPF (Negative) 03/31/18 16:20 Urine Crystals Negative HPF (Negative) 03/31/18 16:20 Urine Bacteria Rare HPF (Negative) 03/31/18 16:20 Urine Casts Negative LPF (Negative) 03/31/18 16:20 Urine Mucus Negative (Negative) 03/31/18 16:20 Urine Other Negative (Negative) 03/31/18 16:20 Ur Culture Indicated? No 03/31/18 16:20 Urine Glucose Negative mg/dL (Negative) 03/31/18 16:20
--- NOTE | 2018-04-01 07:10 | W.PM.DSUDISC ---
Discharge Plan Disposition Patient Disposition: HOME Condition: Stable Discharge Details Chief Complaint: Abd Prob Clinical Impression: Acute appendicitis Reason For Visit: ACUTE APPY Admit Date/Time: 03/31/18 21:46 Admit Provider: Epifanio Castillo III Attending Provider: Epifanio Castillo III Primary Care Provider: Shahla Ball ED Provider: Jose M Shen Home Meds and New Rx's Prescriptions: Continued duloxetine 20 mg capsule,delayed release(DR/EC) 20 mg PO DAILY Qty: 30 RF: 1 fluvoxamine 100 MG tablet 150 mg PO BID RF: 0 ESSENTIAL Balance with Lutein 1 EACH tablet 1 ea PO QAM RF: 0 lamotrigine [Lamictal] 100 MG tablet 100 mg PO BID Qty: 60 RF: 0 aripiprazole [Abilify] 2 MG tablet 2 mg PO DAILY RF: 0 trazodone 100 MG tablet 200 mg PO HS Qty: 60 RF: 0 methylphenidate HCl 10 mg tablet 10 mg PO BID RF: 0 methylphenidate HCl 5 mg tablet 5 mg PO QAM Qty: 60 RF: 0 ibuprofen 200 MG tablet 600 mg PO TID PRNRF: 0 alprazolam 2 mg tablet extended release 24 hr 1 mg PO HS RF: 0 Discharge Instructions Referrals: Epifanio Castillo III, [OSTEOPATHIC DOCTOR] - Activity:: Activity as Tolerated Equipment/Supplies:: No Equipment Needed Diet:: As Tolerated Discharge Orders Discharge Orders: Discharge Order (Routine); Ordered 04/01/18 Ordered By: Epifanio Castillo III DS: Diagnosis Discharge Diagnosis (1) Acute gangrenous appendicitis: Status: Acute
[2018-04-01 07:20] VITALS: BP 126/84; PULSE 75; RESP 18; TEMP 36.9; O2SAT 94
== END 2018-04-01 09:05 | disposition home or self-care (01) | DRG 343 ==
LOC: ER 18:55 → SUR 19:16 → MS 21:56
PROVIDERS: Admitting Provider Surgery; Emergency Provider Nurse Practitioner Family; PCP Family Medicine; Visit Provider Surgery
PROC: 0DTJ4ZZ Resection of Appendix, Percutaneous Endoscopic Approach (ICD-10-PCS; CPT 44970; principal; 2018-03-31 19:00)
DX: K35.891 Other acute appendicitis without perforation, with gangrene (principal); F17.210 Nicotine dependence, cigarettes, uncomplicated
CPT/HCPCS: 44970; 36415; 80053; 83690; 96361; 96365; 96375; 99222; 99285; NC; 74177; 81003; 81015; 83735; 85025; 88304; 99284; J0131; J1100; J1335; J1885; J2250; J2405; J3010; J3490

== ENCOUNTER 2018-09-12 06:08 | Emergency (ER) | payer BC, SELFPAY ==
[2018-09-12 06:13] VITALS: BP 118/64; PULSE 98; RESP 16; TEMP 36.8; O2SAT 98
--- NOTE | 2018-09-12 06:22 | ED.GENADUL_ITS ---
Discharge Plan Disposition Patient Disposition: HOME Condition: Stable Discharge Details Chief Complaint: Orthopedic Clinical Impression: Sciatica, Pain in right hip Primary Care Provider: Shahla Ball ED Provider: Tamiko Eugene Home Meds and New Rx's Prescriptions: New methocarbamol 750 mg tablet 750 mg PO QID PRN (Reason: muscle spasm) Qty: 12 RF: 0 prednisone 20 mg tablet See Rx Instructions .ROUTE .COMPLEX Qty: 12 RF: 0 Continued duloxetine 30 mg capsule,delayed release(DR/EC) 30 mg PO DAILY Qty: 30 RF: 3 fluvoxamine 100 MG tablet 150 mg PO BID RF: 0 ESSENTIAL Balance with Lutein 1 EACH tablet 1 ea PO QAM RF: 0 lamotrigine [Lamictal] 100 MG tablet 100 mg PO BID Qty: 60 RF: 0 aripiprazole [Abilify] 2 MG tablet 2 mg PO DAILY RF: 0 trazodone 100 MG tablet 200 mg PO HS Qty: 60 RF: 0 methylphenidate HCl 10 mg tablet 10 mg PO BID RF: 0 methylphenidate HCl 5 mg tablet 5 mg PO QAM Qty: 60 RF: 0 ibuprofen 200 MG tablet 600 mg PO TID PRNRF: 0 alprazolam 2 mg tablet extended release 24 hr 0.5 mg PO HS RF: 0 Discharge Instructions Instructions: Sciatica (ED), Hip Pain (ED) Additional Instructions: Alternate ice and heat to the affected area several times daily for 20 minutes at a time. Take ibuprofen every 6 hours as needed and directed for pain. Take the muscle relaxers as needed and directed. Take the steroids until finished. Follow-up with your primary care doctor next week for reevaluation. Return immediately to the emergency department if you develop any worsening or c oncerning symptoms. Discharge Data Discharge Physician: Tamiko Eugene Medical Decision Making 58-year-old female with a history of fibromyalgia, bipolar disorder, PTSD, ADHD who presents with right hip and thigh pain for the past 2 days. No cauda equina symptoms. No fever or injury. Vitals within normal limits. Patient appears nontoxic. No evidence of trauma on exam. No focal deficits. She has pain with range of motion of the hip and tenderness palpation of her right buttock. Neurovascularly intact. Differential diagnosis most likely consistent with sciatica versus arthritis. Doubt fracture as there is no history of injury or evidence of trauma on exam. Doubt septic joint is no history of fever with normal vital signs and no evidence of cellulitis on exam. Doubt herniated disc as no complaint of radiculopathy or neurologic symptoms. Patient was offered an x-ray to assess for possible arthritis but she declined. Will give a dose of Toradol IM, Valium p.o. as well as prednisone p.o. 0650 --patient feels much better and she is requesting to go home. We will send home with a prescription for prednisone and methocarbamol. She is instructed to alternate ice and heat, Motrin every 6 hours. She is instructed to follow-up with the primary care doctor for reevaluation and to return anytime if worse. HPI General Mode of arrival: ambulatory . Date/Time Provider Initiated Documentation: 09/12/18 06:09 . Limitations to Documentation: no limitations . Information obtained by: patient . HPI Narrative: Patient is a 58-year-old female who presents with right hip pain with radiation to her right thigh for the past 2 days. Patient has a history of fibromyalgia but states her pain is usually in her upper back and arms and does not feel like a fibromyalgia flare. She states she admits to a history of sciatica but states this feels slightly different and that it is mainly within her right hip and she is usually had that in her right buttock and thigh. Pt denies fever, saddle anesthesia, abdominal pain, leg weakness or numbness, bowel or bladder incontinence. Pt has not taken anything for pain. Related Data Home Medications Medication Instructions Recorded Confirmed ESSENTIAL Balance with Lutein 1 ea PO QAM 07/30/12 09/12/18 fluvoxamine 150 mg PO BID tab-cap 07/30/12 09/12/18 ibuprofen 600 mg PO TID PRN 01/02/14 09/12/18 lamotrigine [Lamictal] 100 mg PO BID #60 tab-cap 03/28/15 09/12/18 aripiprazole [Abilify] 2 mg PO DAILY 09/12/15 09/12/18 trazodone 200 mg PO HS #60 tab-cap 05/29/16 09/12/18 methylphenidate 10 mg tablet 10 mg PO BID tab-cap 01/13/18 09/12/18 methylphenidate 5 mg tablet 5 mg PO QAM #60 tab-cap 01/13/18 09/12/18 alprazolam ER 2 mg tablet,extended 0.5 mg PO HS tab 05/19/18 09/12/18 release 24 hr duloxetine 30 mg capsule,delayed 30 mg PO DAILY #30 cap 05/19/18 09/12/18 release methocarbamol 750 mg PO QID PRN #12 tab 09/12/18 prednisone See Rx Instructions .ROUTE 09/12/18 .COMPLEX #12 tab Previous Rx's Medication Instructions Recorded duloxetine 30 mg capsule,delayed 30 mg PO DAILY #30 cap 05/19/18 release methocarbamol 750 mg PO QID PRN #12 tab 09/12/18 prednisone See Rx Instructions .ROUTE 09/12/18 .COMPLEX #12 tab Allergies Allergy/AdvReac Type Severity Reaction Status Date / Time No Known Allergies Allergy Verified 09/12/18 06:17 General Stated Complaint: Orthopedic ANGÉLICA: 4 Review of Systems Review of Systems All systems reviewed & are unremarkable except as noted in HPI and below Constitutional Reports as per HPI, Denies chills and Denies fever(s) Eyes Denies blurry vision ENT Denies dizziness, Denies sore throat and Denies throat swelling Cardiovascular Denies chest pain and Denies dyspnea Respiratory Denies cough and Denies dyspnea Gastrointestinal Denies abdominal pain, Denies diarrhea and Denies vomiting Genitourinary Denies hematuria and Denies dysuria Musculoskeletal Denies back pain and Denies numbness Comments: Right buttock, hip and thigh pain Integumentary/Breasts Denies lesions and Denies rash Neurologic Denies dizziness, Denies focal weakness and Denies numbness Allergic/Immunologic Denies throat swelling [facility] Medical History Cellulitis (Acute) Gastro-esophageal reflux (Acute) Smoker (Acute) Primary fibromyalgia syndrome (Acute) Panic attack (Acute) Irritable colon (Acute) Hot flash, menopausal (Acute) Depressive disorder (Acute 06/30/08) ADHD (Acute) PTSD (post-traumatic stress disorder) (Acute) Bipolar disorder (Chronic) Surgical History Ligation of fallopian tube Open Carpal Tunnel release (~11/2006) Tonsillectomy and adenoidectomy Vaginal hysterectomy (12/04/05) shoulder surgery Family History Son MDD (major depressive disorder) Trauma ADHD Daughter Depression Mother No problems noted. Father No problems noted. Sister No problems noted. Sister No problems noted. Sister No problems noted. Brother No problems noted. Brother No problems noted. Brother No problems noted. Brother No problems noted. Social History Smoking/Tobacco Use Status: Current every day Tobacco Type: cigarettes Alcohol Intake: current Alcohol Intake frequency: holidays/special occasions only Drug use: Never current occupation: NURSE Pets and animals: Yes Pets and animals: cat(s) and dog(s) Frequency: does not exercise Jo/Gnosticist: No preference Special jo needs: No Do you feel safe at home: Yes Do you feel safe in your relationship?: Yes Exam Const General: cooperative, healthy appearing and no acute distress HENMT Head: normal to inspection Face and sinus: normal facial exam Eyes General: appearance normal, both eyes and all related structures Pupils: PERRL EOM: EOM intact bilaterally Neck Neck: normal visual inspection and No submandibular swelling Lymphatic: no lymphadenopathy noted Chest Chest: normal inspection of the chest and no tenderness Resp Effort & Inspection: normal respiratory effort and able to speak in complete sentences Auscultation: clear to auscultation bilaterally Cardio Rate: regular rate Rhythm: regular rhythm GI Inspection: normal to inspection Palpation: soft, not firm, not rigid and nontender Auscultation: normal bowel sounds Back/Spine/Pelvis Thoracic/Lumbar Spine: thoracic and lumbar spine normal to inspection Pelvis: no pain with anterior-posterior compression, no pain with lateral compression and buttock tenderness on the right Skin General skin exam: no rashes or lesions noted Neuro General: alert, awake and oriented x3 Cognition: normal cognition Speech: speech normal Motor: muscle tone normal throughout Sensory Exam: no sensory deficits noted DTR's: Rt Patellar: 1+, Lt Patellar: 1+, Rt Ankle: 1+ and Lt Ankle: 1+ Plantar Reflexes: Equivocal: bilateral Extrem Other: Pain in right hip with external > internal rotation. No tenderness to palpation of right hip. No right leg shortening or external rotation. No evidence of trauma noted to right buttock or right hip. Normal right femur, hip, lower leg, ankle and foot exam. Right DP/PT pulses intact No pain with range of motion or tenderness to palpation of left lower extremity. Psych Appearance: grossly normal Mental Status: mental status grossly normal Speech and Movement: speech and movement normal Affect: normal affect Course Vital Signs Temperature 98.2 F 09/12/18 06:13 Pulse 98 H 09/12/18 06:13 Respiratory Rate 16 09/12/18 06:13 Blood Pressure 118/64 09/12/18 06:13 Pulse Oximetry 98 09/12/18 06:13 Temperature 98.2 F 09/12/18 06:13 Temperature Source Temporal Artery Scan 09/12/18 06:13 Pulse 98 H 09/12/18 06:13 Respiratory Rate 16 09/12/18 06:13 Respiratory Effort 09/12/18 06:13 Blood Pressure 118/64 09/12/18 06:13 Pulse Oximetry 98 09/12/18 06:13 Oxygen Delivery Method Room Air 09/12/18 06:13 Oxygen Flow Rate 0 09/12/18 06:13 Pain Level 10 09/12/18 06:16
[2018-09-12] MEDS: predniSONE 20 MG TAB 60 MG PO (06:31)
[2018-09-12] MEDS: diazePAM 5 MG TAB PO (06:32)
[2018-09-12] MEDS: Ketorolac 60 MG/2 ML VIAL IM (06:33)
== END 2018-09-12 07:11 | disposition home or self-care (01) ==
PROVIDERS: Emergency Provider Physician Assistant; PCP Family Medicine
DX: M54.31 Sciatica, right side (principal); M25.551 Pain in right hip
CPT/HCPCS: 96372; 99284; 99283; J1885; J7512

== ENCOUNTER 2019-04-11 21:35 | Emergency (ER) | payer BC, SELFPAY ==
[2019-04-11 21:38] VITALS: BP 119/56; PULSE 77; RESP 18; TEMP 36.1; O2SAT 96
[2019-04-11] MEDS: Albuterol HFA 8 GM 60 PUFF INH IH (22:17)
--- NOTE | 2019-04-11 22:19 | W.ED.GENAD ---
Discharge Plan Disposition Patient Disposition: HOME Condition: Good Discharge Details Chief Complaint: RespSymp Clinical Impression: Bronchitis Primary Care Provider: Shahla Ball ED Provider: Elsa Lassiter Home Meds and New Rx's Prescriptions: New codeine-guaifenesin 6.3-100 mg/5 mL liquid 8 ml PO Q6H PRN (Reason: cough) Qty: 80 RF: 0 No Action duloxetine 60 mg capsule,delayed release(DR/EC) 60 mg PO DAILY Qty: 90 RF: 2 amoxicillin-pot clavulanate [Augmentin] 875-125 mg tablet 1 tab PO BID Qty: 20 RF: 1 benzonatate [Tessalon Perles] 100 mg capsule 100 mg PO BID-TID PRN (Reason: cough) Qty: 60 RF: 0 fluvoxamine 100 MG tablet 150 mg PO BID RF: 0 ESSENTIAL Balance with Lutein 1 EACH tablet 1 ea PO QAM RF: 0 lamotrigine [Lamictal] 100 MG tablet 100 mg PO BID Qty: 60 RF: 0 aripiprazole [Abilify] 2 MG tablet 2 mg PO DAILY RF: 0 trazodone 100 MG tablet 200 mg PO HS Qty: 60 RF: 0 methylphenidate HCl 10 mg tablet 10 mg PO BID RF: 0 methylphenidate HCl 5 mg tablet 5 mg PO QAM Qty: 60 RF: 0 ibuprofen 200 MG tablet 600 mg PO TID PRNRF: 0 alprazolam 2 mg tablet extended release 24 hr 0.5 mg PO HS RF: 0 Discharge Instructions Instructions: Acute Bronchitis (ED) Additional Instructions: Drink plenty of fluids. Increase vitamin C. Consider humidifier by her bedside. Conservative treatments such as honey Use inhaler as prescribed. Use cough medication only if needed for difficulty sleeping and severe cough, do not drive, drink alcohol, work while taking this medication. Rest activities as tolerated. Continue your medications previously prescribed. Follow-up with PCP if not improving the next 3 to 5 days. Return for any worsening, concerns or alarming symptoms sooner if needed Stand Alone Forms: Work Release Medical Decision Making This is a 59-year-old patient presenting to the emergency room for complaints of cough which is persistent and causing difficulty sleeping. Patient reports she has been sick for approximately 8 days. Patient complains of URI symptoms. Patient was seen at [facility] earlier today and was diagnosed with sinus infection as well as bronchitis. Started on Augmentin and Tessalon Perles. Patient reports several days due to difficulty sleeping. She did try Tessalon Perles which she used in conjunction with her typical sleep aids and reports she is continuing to have difficulty sleeping. Patient reports a coughing fit lasting approximately 45 minutes this evening. Patient is very frustrated with her difficulty controlling her cough and sleep. Patient at this time is requesting Robitussin with codeine as well as an inhaler. Patient is a smoker. On exam does have some scattered wheezing and a left ear effusion with mild erythema. Patient is on appropriate antibiotic treatment. After discussion with the patient I will give her a small amount of Robitussin with codeine as well as a work note for 2 days to rest. Inhaler to be dispensed from the ER. Patient agrees with plan of care. The patient was stable and requested discharge. Prior to discharge, my usual and customary return precautions were reviewed with the patient - this included follow-up instructions and reasons to return to the Emergency Department if conditions worsens, does not improve as expected, or other new concerns arise. HPI General Date/Time Provider Initiated Documentation: 04/11/19 21:37. HPI Narrative: This is a 59-year-old woman presenting to the emergency room for persisting concerns of cough. Patient reports she has been sick for approximately 8 days with predominantly nasal congestion, sinus pain, headaches and cough. Denies nausea, vomiting or diarrhea. Does admit to body aches. Patient was seen at [facility] today ultimately diagnosed with a sinus infection and bronchitis. Patient treated with Augmentin as well as Tessalon Perle. Patient reports she took 2 Tessalon Perles and has been unable to sleep. Patient reports she did take her daily medications for sleep aid as well and is still having difficulty sleeping due to coughing. Patient denies increase in chest pain. Patient denies any significant shortness of breath. Patient is very frustrated with her lack of sleep and is feeling quite fatigued. Patient is a nurse locally. Patient is asking specifically for codeine cough syrup as well as an inhaler. Patient denies any other concerns or complaints at this time. Related Data Home Medications Medication Instructions Recorded Confirmed ESSENTIAL Balance with Lutein 1 ea PO QAM 07/30/12 04/11/19 fluvoxamine 150 mg PO BID tab-cap 07/30/12 04/11/19 ibuprofen 600 mg PO TID PRN 01/02/14 04/11/19 lamotrigine [Lamictal] 100 mg PO BID #60 tab-cap 03/28/15 04/11/19 aripiprazole [Abilify] 2 mg PO DAILY 09/12/15 04/11/19 trazodone 200 mg PO HS #60 tab-cap 05/29/16 04/11/19 methylphenidate HCl 10 mg tablet 10 mg PO BID tab-cap 01/13/18 04/11/19 methylphenidate HCl 5 mg tablet 5 mg PO QAM #60 tab-cap 01/13/18 04/11/19 alprazolam 2 mg tablet,extended 0.5 mg PO HS tab 05/19/18 04/11/19 release 24 hr duloxetine 60 mg capsule,delayed 60 mg PO DAILY #90 cap 01/19/19 04/11/19 release amoxicillin 875 mg-potassium 1 tab PO BID #20 tab 04/11/19 04/11/19 clavulanate 125 mg tablet benzonatate 100 mg capsule 100 mg PO BID-TID PRN #60 cap 04/11/19 04/11/19 codeine-guaifenesin 8 ml PO Q6H PRN #80 ml 04/11/19 Previous Rx's Medication Instructions Recorded duloxetine 60 mg capsule,delayed 60 mg PO DAILY #90 cap 01/19/19 release amoxicillin 875 mg-potassium 1 tab PO BID #20 tab 04/11/19 clavulanate 125 mg tablet benzonatate 100 mg capsule 100 mg PO BID-TID PRN #60 cap 04/11/19 codeine-guaifenesin 8 ml PO Q6H PRN #80 ml 04/11/19 Allergies Allergy/AdvReac Type Severity Reaction Status Date / Time No Known Allergies Allergy Verified 04/11/19 21:41 General Stated Complaint: RespSymp ANGÉLICA: 3 Review of Systems All systems reviewed & are unremarkable except as noted in HPI and below Constitutional Constitutional: Reports fatigue, Denies headache(s) and Reports malaise ENT Ears, Nose, Mouth, and Throat: Reports otalgia, Denies headache(s), Reports nasal congestion, Reports sinus pain, Reports sinus pressure and Reports sore throat Respiratory Respiratory: Reports cough and Reports wheezing Gastrointestinal Gastrointestinal: Denies abdominal pain, Denies diarrhea, Denies nausea and Denies vomiting Genitourinary Genitourinary: Denies dysuria Neurologic Neurologic: Denies headache(s) Endocrine Endocrine: Reports fatigue Allergic/Immunologic Allergic/Immunologic: Reports wheezing PFSH Medical History ADHD (Acute) Bipolar disorder (Chronic) Cellulitis (Acute) Depressive disorder (Acute 06/30/08) Gastro-esophageal reflux (Acute) Hot flash, menopausal (Acute) po estrogen therapy: Irritable colon (Acute) Panic attack (Acute) Primary fibromyalgia syndrome (Acute) PTSD (post-traumatic stress disorder) (Acute) Smoker (Acute) Family History (Updated 01/20/19 @ 09:41 by Jv Eagle) Son MDD (major depressive disorder) Trauma ADHD Depression Daughter Depression Mother , SUICIDE AGE 50 Depression Father No problems noted. Sister No problems noted. Sister No problems noted. Sister No problems noted. Brother No problems noted. Brother No problems noted. Brother No problems noted. Brother No problems noted. Social History Smoking/Tobacco Use Status: Current every day Tobacco Type: cigarettes Alcohol Intake: current Alcohol Intake frequency: holidays/special occasions only Drug use: Never Substance use type: does not use Caregiver/Support person: No Household members: spouse Housing: house Communication Needs: None current occupation: NURSE Pets and animals: Yes Pets and animals: cat(s) and dog(s) Sexually active: Yes Do you think of yourself as: straight/heterosexual Current gender identity: female What is your relationship status?: How often do you talk on the phone with friends or family?: three or more times per week How often do you get together with friends or relatives?: decline to answer How often do you attend gnosticist or pentecostalism services?: decline to answer Do you belong to any clubs or organized social groups?: no Panel score (0-1 are the most socially isolated patients): 2 What type of physical activity do you participate in: walking Duration: 15-30 minutes/day Frequency: 3-4 times per week Jo/Faith: None Special jo needs: No Seatbelt use: always Helmet use: Yes Helmet use: always Drive intox or ride w/intox corrugated fastener driver: No Do you feel safe at home: Yes Do you feel safe in your relationship?: Yes Exam Narrative Exam Narrative: CONST: Well hydrated. Alert and oriented. HENMT: Head nomocephalic, normal to inspection. Atraumatic. Hearing grossly normal. TM on right obscured by wax, TM on the left with erythema and mild effusion. Mild pharyngeal erythema. EYES: General normal appearance. Alignment normal. Eyelids normal. Conjunctiva normal. NECK: Normal visual inspection. FROM. Trachea midline. No Midline tenderness. No cervical lymphadenopathy present CHEST: Normal insepection of the chest. RESP: Normal respiratory effort. Speaking full sentences. No cough. No audible wheezing. No retractions. Breath sounds are clear, full and equal bilaterally. Scattered wheezing specifically in the anterior lungs bilaterally and right posterior upper lung. No rhonchi, rales. CARDIO: No JVD. No murmur, regular rate and rhythm Course Vital Signs Vital signs: Vital Signs Temperature 36.1 C L 04/11/19 21:38 Pulse 77 04/11/19 21:38 Respiratory Rate 18 04/11/19 21:38 Blood Pressure 119/56 L 04/11/19 21:38 Pulse Oximetry 96 04/11/19 21:38 Temperature 36.1 C L 04/11/19 21:38 Temperature Source Skin 04/11/19 21:38 Pulse 77 04/11/19 21:38 Respiratory Rate 18 04/11/19 21:38 Respiratory Effort Non-Labored 04/11/19 21:41 Respiratory Depth Normal 04/11/19 21:41 Blood Pressure 119/56 L 04/11/19 21:38 Pulse Oximetry 96 04/11/19 21:38 Pain Level 2 04/11/19 21:38
[2019-04-11] MEDS: guaiFENesin/CODEINE PHOSPHATE 10 ML CUP PO (22:34)
[2019-04-11 22:50] VITALS: BP 119/56; PULSE 77; RESP 18; TEMP 36.1; O2SAT 96
== END 2019-04-11 22:40 | disposition home or self-care (01) ==
PROVIDERS: Emergency Provider Physician Assistant; PCP Family Medicine
DX: J20.9 Acute bronchitis, unspecified (principal); G47.9 Sleep disorder, unspecified; F17.210 Nicotine dependence, cigarettes, uncomplicated
CPT/HCPCS: 99283

== ENCOUNTER 2019-08-02 10:26 | Outpatient (CLI) | payer BC, SELFPAY ==
[2019-08-03 18:24] LABS: COVID-19 RT-PCR Result NEGATIVE (Negative)
== END 2019-08-02 10:46 ==
PROVIDERS: PCP Family Medicine; Visit Provider Family Medicine
DX: J02.9 Acute pharyngitis, unspecified (principal)
CPT/HCPCS: U0003

== ENCOUNTER → 2019-09-08 02:57 | Outpatient (CLI) | payer BC, SELFPAY ==
[2019-09-09 09:23] LABS: Hepatitis B Surface Ab Positive (See Note)
[2019-09-09 10:32] LABS: Measles IgG Antibody Positive (See Note); Mumps Antibody IgG Positive (See Note); Rubella IgG Ab (UVM) Positive (See Note); Varicella IgG Antibody Positive (See Note)
== END ==
PROVIDERS: PCP Family Medicine; Visit Provider Family Medicine
DX: Z11.59 Encounter for screening for other viral diseases (principal); Z01.84 Encounter for antibody response examination
CPT/HCPCS: 36415; 86706; 86787; 86735; 86762; 86765

== ENCOUNTER 2019-11-14 13:52 | Outpatient (CLI) | payer BC, SELFPAY ==
[2019-11-17 13:43] LABS: Method Summary See Comments; Patient Race White; SARS-CoV-2 RNA Undetected (Undetected); SARS-CoV-2 Specimen Source Nasal
== END 2019-11-14 14:12 ==
PROVIDERS: PCP Family Medicine; Visit Provider Family Medicine
DX: Z11.59 Encounter for screening for other viral diseases (principal)
CPT/HCPCS: U0003

== ENCOUNTER 2020-01-05 10:58 | Outpatient (REF) | payer BC, SELFPAY ==
[2020-01-05 13:25] LABS: Abs Immature Grans 0.05 10^3/uL (0.0-0.06); Absolute Basophil Count 0.07 10^3/uL (0.0-0.2); Absolute Eosinophil Count 0.25 10^3/uL (0.0-0.7); Absolute Lymphocyte Count 2.85 10^3/uL (1.2-3.4); Absolute Monocyte Count 0.51 10^3/uL (0.1-0.8); Absolute Neutrophil Count 4.94 10^3/uL (1.2-6.7); Basophils % 0.8; Eosinophils % 2.9; HCT 47.9 % (36.0-46.0); HGB 15.7 g/dL (11.2-15.7); Immature Grans % 0.6; Lymphocytes % 32.9; MCH 30.8 pg (27.0-33.0); MCHC 32.8 % (32.0-36.0); MCV 94.1 fL (80-95); MPV 10.8 fL (8.0-11.0); Monocytes % 5.9; Neutrophils % 56.9; Nucleated RBC 0 %; Platelet Count 311 10^3/uL (130-400); RBC 5.09 10^6/uL (3.93-5.22); RDW 12.9 % (11.7-14.6); RDW-SD 44.4 fL; WBC 8.67 10^3/uL (4.4-10.8)
[2020-01-05 13:39] LABS: ALT 32 U/L (14-59); AST 15 U/L (15-37); Alkaline Phosphatase 93 U/L (46-116); Anion Gap 9.6 mmol/L (3-11); BUN 15 mg/dL (7-18); Bilirubin, Total 0.3 mg/dL (0.2-1.0); CO2 25.4 mmol/L (21.0-32.0); CREATININE 1.02 mg/dL (0.55-1.02); Chloride 105 mmol/L (98-107); Estimated GFR 55.47 (mL/min/1.73m2); Glucose 127 mg/dL (74-106); Sodium 140 mmol/L (136-145); Total Protein 7.7 g/dL (6.4-8.2)
[2020-01-05 13:42] LABS: TSH 2.56 uIU/mL (0.36-3.74)
[2020-01-05 16:16] LABS: Magnesium 2.2 mg/dL (1.8-2.4)
== END 2020-01-05 11:18 ==
LOC: LBN 10:58
PROVIDERS: Internal Medicine; Nurse Practitioner Family; PCP Family Medicine; Visit Provider Family Medicine
DX: R23.2 Flushing (principal); F31.9 Bipolar disorder, unspecified; M79.661 Pain in right lower leg; R05 Cough; R79.89 Other specified abnormal findings of blood chemistry
CPT/HCPCS: 80053; 83735; 84443; 85025

== ENCOUNTER 2020-01-06 03:58 | Outpatient (CLI) | payer BC, SELFPAY ==
--- NOTE | 2020-01-06 07:30 | DI.US_ITS ---
EXAM: US LOWER EXTREMITY VENOUS RT CLINICAL HISTORY: right calf pain,M79.661. TECHNIQUE: Lower extremity venous ultrasound performed using grayscale, color-flow, and spectral Dop pler analysis. COMPARISON: No exams were available for comparison FINDINGS: The common femoral, femoral and popliteal veins demonstrate normal compressibility, augmentation, and color Doppler. The posterior tibial veins are patent. The saphenous vein appears free of thrombus. No Connelly's cyst or hematoma is seen. IMPRESSION: No evidence of DVT. DATA REPOSITORY:
== END 2020-01-06 04:18 ==
PROVIDERS: PCP Family Medicine; Visit Provider Nurse Practitioner Family
DX: M79.661 Pain in right lower leg (principal)
CPT/HCPCS: 93971

== ENCOUNTER → 2020-06-12 02:34 | Outpatient (CLI) | payer OTHER, SELFPAY ==
--- NOTE | 2020-06-12 06:30 | DI.RAD_ITS ---
EXAM: XR SHOULDER RT COMPLETE 2+V CLINICAL HISTORY: S/P FALL 05/12/20,PAIN,H/O SHOULDER SURGERY,M25.519,[id number]. TECHNIQUE: 2D digital imaging was performed. COMPARISON: No exams were available for comparison FINDINGS: BONES: No acute fracture is present. No bony destructive lesion is seen. Mild spurring at the acromio n. JOINTS: No dislocation present. Widening of the AC joint which could be postsurgical. Clinical cor relation is recommended. The glenohumeral joint is well maintained without significant degenerative changes. SOFT TISSUE: Small calcifications near the greater tuberosity consistent with calcific tendinosis. IMPRESSION: Calcific tendinosis. DATA REPOSITORY: RADIATION DOSE DELIVERED:
== END ==
PROVIDERS: PCP Family Medicine
DX: M25.511 Pain in right shoulder (principal); M75.31 Calcific tendinitis of right shoulder; Z98.890 Other specified postprocedural states
CPT/HCPCS: 73030

== ENCOUNTER → 2020-10-10 02:27 | Outpatient (CLI) | payer OTHER, SELFPAY ==
--- NOTE | 2020-10-10 07:30 | DI.RAD_ITS ---
Exam(s) XR LUMBAR SPINE COMPLETE EXAM: XR LUMBAR SPINE COMPLETE CLINICAL HISTORY: Pain mgt request for imaging,LOW BACK PAIN,M54.5. TECHNIQUE: 2D digital imaging was performed. COMPARISON: CR LUMBAR SPINE AP, LAT from 07/08/2010 FINDINGS: No evidence of fracture or listhesis nor pars defects. Advanced disc space narrowing at L5-S1 level is again noted. The other disc spaces continue to exhibit normal height. Some facet arthropathy at L5-S1 level is again noted sacroiliac joints appear unremarkable. No osseous lesions nor scoliosis. Bone density is age appropriate. IMPRESSION: Advanced disc space narrowing at L5-S1 level is unchanged from 2011. No new additional findings. DATA REPOSITORY: RADIATION DOSE DELIVERED:
== END ==
PROVIDERS: PCP Family Medicine; Visit Provider Nurse Practitioner Family
DX: M48.07 Spinal stenosis, lumbosacral region; G89.29 Other chronic pain; M54.5 Low back pain
CPT/HCPCS: 72110

== ENCOUNTER 2020-10-23 17:40 | Outpatient (REF) | payer OTHER, SELFPAY ==
[2021-01-16 13:18] LABS: Fungus Smear No Fungi Seen
== END 2020-10-23 17:41 | disposition home or self-care (01) ==
LOC: LBN 17:40
PROVIDERS: PCP Family Medicine; Visit Provider Obstetrics & Gynecology
DX: N76.6 Ulceration of vulva (principal)
CPT/HCPCS: 87101; 87206

== ENCOUNTER 2020-12-25 04:16 | Emergency (ER) | payer OTHER, SELFPAY ==
[2020-12-25 04:22] VITALS: BP 145/76; PULSE 98; RESP 18; TEMP 36; O2SAT 97
--- NOTE | 2020-12-25 04:35 | W.ED.GENAD ---
Discharge Plan Disposition Patient Disposition: HOME Condition: Good Discharge Details Clinical Impression: Bronchitis, CAP (community acquired pneumonia) Primary Care Provider: Roddy Alfredo ED Provider: Colton Calderón Home Meds and New Rx's Prescriptions: New doxycycline hyclate 100 mg capsule 100 mg PO BID 7 Days Qty: 14 RF: 0 benzonatate 100 mg capsule 100 mg PO TID Qty: 30 RF: 0 No Action lamotrigine [Lamictal] 100 mg tablet 150 - 200 mg PO BID Qty: 60 RF: 0 omeprazole 40 mg capsule,delayed release(DR/EC) 40 mg PO DAILY Qty: 30 RF: 3 methylphenidate HCl 10 mg tablet 10 mg PO TID RF: 0 duloxetine 60 mg capsule,delayed release(DR/EC) 60 mg PO DAILY Qty: 60 RF: 12 fluvoxamine 100 MG tablet 150 mg PO BID RF: 0 ESSENTIAL Balance with Lutein 1 EACH tablet 1 ea PO QAM RF: 0 aripiprazole [Abilify] 2 MG tablet 2 mg PO DAILY RF: 0 trazodone 100 MG tablet 200 mg PO HS Qty: 60 RF: 0 ibuprofen 200 MG tablet 600 mg PO TID PRNRF: 0 Discharge Instructions Instructions: Pneumonia (ED) Additional Instructions: You have evidence of mild pneumonia on bedside ultrasound and by your symptoms. Please take the antibiotic doxycycline as directed. The prescription has been sent to your pharmacy on file. Please also take the Tessalon Perles as needed for cough. Please use the inhaler with spacer as directed. 2 puffs every 4-6 hours as needed for any shortness of breath. If you notice any worsening of your symptoms, or any new symptoms such as vomiting, diarrhea, fever, chills, shortness of breath, chest pain, numbness, weakness, or fainting , please return immediately to the emergency department for reevaluation. Please follow up with your primary care provider as soon as possible for reassessment and reevaluation. As always, it was a pleasure participating in your medical care today. Referrals: Roddy Alfredo MD [Primary Care Provider] - Medical Decision Making This is a 60-year-old female with a past medical history of fibromyalgia, who presents today for evaluation of persistent cough. Patient states that for the last 10 days she has had a distinct cough, so much so that she is developed mild pain when she coughs the left lower lateral rib. She denies any trauma. She does have mild productivity to the cough. No green or hemoptysis. She does smoke, but is cutting down. She denies any history of pulmonary embolism, or lung cancer. No other complaints at this time. She does not use inhalers. Physical exam demonstrates Mild B-lines and mild consolidation in the left mid lung field. No evidence of pneumothorax on bedside ultrasound. Mild crackle in that same area. Symptoms consistent with viral bronchitis and early pneumonia. Will give doxycycline, inhaler and Tessalon Perles for home use. Symptoms inconsistent with ACS or PE. Discussed red flags which to return. I have extensively reviewed the treatment plan and discharge instructions with the patient. I have addressed all patient concerns at this time. The patient was made aware of what symptoms to monitor for that would warrant a return to the emergency department. Discussed the plan with the patient, they demonstrate verbal understanding and agreement with our assessment and plan at this time. The documentation in this chart was dictated using [employer] dictation software. Please excuse any dictation errors. HPI General Date/Time Provider Initiated Documentation: 12/25/20 04:22. HPI Narrative: This is a 60-year-old female with a past medical history of fibromyalgia, who presents today for evaluation of persistent cough. Patient states that for the last 10 days she has had a distinct cough, so much so that she is developed mild pain when she coughs the left lower lateral rib. She denies any trauma. She does have mild productivity to the cough. No green or hemoptysis. She does smoke, but is cutting down. She denies any history of pulmonary embolism, or lung cancer. No other complaints at this time. She does not use inhalers. No other modifying factors. Related Data Home Medications Medication Instructions Recorded Confirmed ESSENTIAL Balance with Lutein 1 ea PO QAM 07/30/12 12/25/20 fluvoxamine 150 mg PO BID tab-cap 07/30/12 12/25/20 ibuprofen 600 mg PO TID PRN 01/02/14 12/25/20 aripiprazole [Abilify] 2 mg PO DAILY 09/12/15 12/25/20 trazodone 200 mg PO HS #60 tab-cap 05/29/16 12/25/20 lamotrigine 100 mg tablet 150 - 200 mg PO BID #60 tab-cap 05/02/19 12/25/20 duloxetine 60 mg capsule,delayed 60 mg PO DAILY #60 cap 07/30/20 12/25/20 release methylphenidate HCl 10 mg tablet 10 mg PO TID tab-cap 12/03/20 12/25/20 omeprazole 40 mg capsule,delayed 40 mg PO DAILY #30 cap 12/03/20 12/25/20 release benzonatate 100 mg PO TID #30 cap 12/25/20 doxycycline hyclate 100 mg PO BID 7 Days #14 cap 12/25/20 Previous Rx's Medication Instructions Recorded lamotrigine 100 mg tablet 150 - 200 mg PO BID #60 tab-cap 05/02/19 duloxetine 60 mg capsule,delayed 60 mg PO DAILY #60 cap 07/30/20 release omeprazole 40 mg capsule,delayed 40 mg PO DAILY #30 cap 12/03/20 release benzonatate 100 mg PO TID #30 cap 12/25/20 doxycycline hyclate 100 mg PO BID 7 Days #14 [facility] 12/25/20 Allergies Allergy/AdvReac Type Severity Reaction Status Date / Time No Known Allergies Allergy Verified 12/25/20 04:25 General Stated Complaint: RespSymp ANGÉLICA: 4 Review of Systems All systems reviewed & are unremarkable except as noted in HPI and below PFSH Medical History ADHD Bipolar disorder Cellulitis Cervicalgia 05/12/20 - fall on ice Depressive disorder (06/30/08) Gastro-esophageal reflux Hot flash, menopausal po estrogen therapy:-2014 Panic attack Primary fibromyalgia syndrome PTSD (post-traumatic stress disorder) Screening due Shoulder pain, acute Smoker Surgical History Ligation of fallopian tube Open Carpal Tunnel release (~11/2006) B/L shoulder surgery right Tonsillectomy and adenoidectomy Vaginal hysterectomy (12/04/05) Family History Son MDD (major depressive disorder) Trauma ADHD Depression Daughter Depression Substance use disorder Mother , SUICIDE AGE 50 Depression Father No problems noted. Sister No problems noted. Sister No problems noted. Sister No problems noted. Brother No problems noted. Brother No problems noted. Brother No problems noted. Brother No problems noted. Social History Smoking/Tobacco Use Status: Current every day Tobacco Type: cigarettes Tobacco: How many years used: 40 Quit status: considering quitting Second Hand Exposure: Yes Smoking risk assessment performed?: Yes Alcohol Intake: current Alcohol Intake frequency: holidays/special occasions only Drug use: Never Substance use type: does not use Household members: spouse Housing: house Communication Needs: None Do you need help understanding health information?: Never current occupation: NURSE Pets and animals: Yes Pets and animals: cat(s) and dog(s) Do you think of yourself as: straight/heterosexual Current gender identity: female What is your relationship status?: Do you belong to any clubs or organized social groups?: no Panel score (0-1 are the most socially isolated patients): 1 Jo/Buddhism: None Special jo needs: No Seatbelt use: always Helmet use: Yes Helmet use: always Drive intox or ride w/intox delivery truck driver heavy: No Do you feel safe at home: Yes Do you feel safe in your relationship?: Yes Exam Narrative Exam Narrative: 1.Const: Well-nourished, Well-developed, appearing stated age 2.Eyes: PERRL, no conjunctival injection, and symmetrical lids. 3.ENT: Atraumatic external nose and ears. Moist MM. Neck: Symmetric, trachea midline, No thyromegaly. 4.CVS: +S1/S2, No murmurs or gallops. Peripheral pulses 2+ and equal in all extremities. Brisk capillary refill in all extremities. 5.RESP: Unlabored respiratory effort. Mild crackle and wheeze in the left midlung field. Bedside ultrasound in this area demonstrates localized B-lines and mild consolidation. No evidence of pneumothorax 6.GI: Soft, Nontender/Nondistended, No hepatosplenomegaly. No guarding or rebound. 7.MSK: Normocephalic/Atraumatic, Extremities w/o deformity or ttp No cyanosis or clubbing, Normal movement of all extremities 8.Skin: Warm, Dry. No rashes or lesions. 9.Neuro: edge stripper II-XII grossly intact. Sensation grossly intact, no focal neurologic deficits. 10.Psych: (AAO) x3. Appropriate mood and affect Course Vital Signs Vital signs: Vital Signs Temperature 36.0 C L 12/25/20 04:22 Pulse 98 H 12/25/20 04:22 Respiratory Rate 18 12/25/20 04:22 Blood Pressure 145/76 H 12/25/20 04:22 Pulse Oximetry 97 12/25/20 04:22 Temperature 36.0 C L 12/25/20 04:22 Temperature Source Skin 12/25/20 04:22 Pulse 98 H 12/25/20 04:22 Respiratory Rate 18 12/25/20 04:22 Respiratory Effort 12/25/20 04:26 Blood Pressure 145/76 H 12/25/20 04:22 Pulse Oximetry 97 12/25/20 04:22 Pain Level 2 12/25/20 04:22
[2020-12-25] MEDS: Albuterol HFA 8 GM 60 PUFF INH IH (04:50)
[2020-12-25] MEDS: Doxycycline Hyclate 100 MG, 2 CAPS/BTL PO (04:51)
[2020-12-25 04:52] VITALS: BP 134/88
[2020-12-25] MEDS: Inhaler, Assist Device 1 EACH MC (04:52)
== END 2020-12-25 04:50 | disposition home or self-care (01) ==
PROVIDERS: Emergency Provider Student in an Organized Health Care Education/Training Program; PCP Family Medicine
DX: J20.9 Acute bronchitis, unspecified (principal); J18.9 Pneumonia, unspecified organism; F17.210 Nicotine dependence, cigarettes, uncomplicated
CPT/HCPCS: 99284; 99283

== ENCOUNTER 2020-12-31 01:52 | Outpatient (CLI) | payer OTHER, SELFPAY ==
--- NOTE | 2020-12-31 07:15 | DI.MAMMO_ITS ---
Exam(s) MAMMO SCREENING EXAM: MAMMO SCREENING CLINICAL HISTORY: screening,z12.39. TECHNIQUE: Bilateral full field digital CC and MLO mammographic images were obtained with 3D tomosyn thesis and utilizing computer aided detection (CAD). COMPARISON: Prior mammograms dating back to 2011, the most recent being March 2017. FINDINGS: There are no new significant radiograph findings in left breast. The right breast there is a group of microcalcifications located approximately 11 cm in from the nipp le on the MLO view and slightly more prominent than on prior studies. Spot Mag view recommended No new spiculated masses There is no significant architectural distortion nor skin thickening-retraction. IMPRESSION: Right breast microcalcification which requires 2D spot Mag views both CC and MLO planes. BI-RADS Category 0 - Assessment Incomplete: Need additional imaging evaluation Breast Density - Category B - Scattered areas of fibroglandular density Breast density Category C or D implies that the patient has dense breast tissue. Dense breast tissue can make it harder to find cancer on a mammogram. Dense breast tissue is also associated with an incr eased risk of breast cancer. This information about the result of the mammogram report was provided to the patient to raise their awareness. Use this report when you speak with the patient about their risks for breast cancer, which includes their family history. At that time, you may recommend additional screening tests (Ultrasoun d or MRI) as these tests may add significant information. A negative radiographic report should not delay biopsy if a dominant or clinically suspicious mass is present. Up to ten percent of cancers are not identified on mammography. A negative report may reinforce clinical impression. Adenosis and dense breasts may obscure an underlying neoplasm. False positive reports average 6 to 10%. Patient will receive a letter notifying them of these results.
== END 2020-12-31 02:12 ==
PROVIDERS: PCP Family Medicine; Visit Provider Family Medicine
DX: Z12.31 Encounter for screening mammogram for malignant neoplasm of breast (principal); R92.0 Mammographic microcalcification found on diagnostic imaging of breast
CPT/HCPCS: 77063; 77067

== ENCOUNTER 2021-01-01 15:06 | Outpatient (REF) | payer OTHER, SELFPAY ==
[2021-01-03 18:22] LABS: COVID-19 RT-PCR UVMMC Result Negative (Negative)
== END 2021-01-01 15:07 | disposition home or self-care (01) ==
LOC: LBN 15:06
PROVIDERS: PCP Family Medicine; Visit Provider Family Medicine
DX: Z20.822 Contact with and (suspected) exposure to COVID-19 (principal); R05.9 Cough, unspecified; R51.9 Headache, unspecified
CPT/HCPCS: U0003

== ENCOUNTER 2021-01-03 02:44 | Outpatient (CLI) | payer OTHER, SELFPAY ==
[2021-01-03 08:45] LABS: ALT 27 U/L (14-59); AST 13 U/L (15-37); Albumin 4.1 g/dL (3.4-5.0); Alkaline Phosphatase 90 U/L (46-116); Anion Gap 9.6 mmol/L (3-11); BUN 20 mg/dL (7-18); Bilirubin, Total 0.3 mg/dL (0.2-1.0); CO2 28.4 mmol/L (21.0-32.0); CREATININE 1.1 mg/dL (0.55-1.02); Calcium 9.5 mg/dL (8.5-10.1); Calculated LDL 156 mg/dL (<100); Chloride 103 mmol/L (98-107); Cholesterol 227 mg/dL (<200); Estimated GFR 50.67 (mL/min/1.73m2); Glucose 100 mg/dL (74-106); HDL Cholesterol 52 mg/dL (40-60); Potassium 4.8 mmol/L (3.5-5.1); Sodium 141 mmol/L (136-145); Total Protein 7.6 g/dL (6.4-8.2); Triglyceride 96 mg/dL (<150)
[2021-01-03 08:57] LABS: Vitamin D 25 Total 26.4 ng/mL (30-100)
== END 2021-01-03 02:45 | disposition home or self-care (01) ==
LOC: LBO 02:44
PROVIDERS: PCP Family Medicine; Visit Provider Family Medicine
DX: K21.9 Gastro-esophageal reflux disease without esophagitis (principal); E55.9 Vitamin D deficiency, unspecified; Z13.220 Encounter for screening for lipoid disorders
CPT/HCPCS: 36415; 80053; 80061; 82306

== ENCOUNTER 2021-01-09 02:26 | Outpatient (CLI) | payer OTHER, SELFPAY ==
--- NOTE | 2021-01-09 | DI.MAMMO_ITS ---
Exam(s) MG MAMMO SCREEN CALL BACK UNI EXAM: MAMMO SCREEN CALL BACK UNI-RIGHT CLINICAL HISTORY: F/U MAMMO, RT MICROCALCIFICATIONS, DENSE BREAST TISSUE. TECHNIQUE: Unilateral spot mammographic images obtained with 2D spot Mag viewsand utilizing computer aided detection (CAD). . COMPARISON: Prior mammograms were reviewed. This additional imaging was performed due to findings described on the recent screening mammogram of 12/31/2020. FINDINGS: 2D spot Mag views were performedof the microcalcifications right breast These additional views reveal the microcalcification group to be similar compared to prior years. Th erefore probably benign. Nevertheless, I feel follow-up six-month would be recommended. IMPRESSION: Relatively stable appearance of the microcalcification group. Appropriate follow-up is repeat Mag views of the right breast in 6 months.. The patient was informed of these findings and recommendations prior to leaving the department today. BI-RADS Category 3 - 6 month - Probably Benign Finding: Recommend follow-up mammography in 6 months Breast Density - Category B - Scattered areas of fibroglandular density Breast density Category C or D implies that the patient has dense breast tissue. Dense breast tissue can make it harder to find cancer on a mammogram. Dense breast tissue is also associated with an incr eased risk of breast cancer. This information about the result of the mammogram report was provided to the patient to raise their awareness. Use this report when you speak with the patient about their risks for breast cancer, which includes their family history. At that time, you may recommend additional screening tests (Ultrasoun d or MRI) as these tests may add significant information. A negative radiographic report should not delay biopsy if a dominant or clinically suspicious mass is present. Up to ten percent of cancers are not identified on mammography. A negative report may reinforce clinical impression. Adenosis and dense breasts may obscure an underlying neoplasm. False positive reports average 6 to 10%. Patient will receive a letter notifying them of these results.
== END 2021-01-09 02:46 ==
PROVIDERS: PCP Family Medicine; Visit Provider Family Medicine
DX: R92.8 Other abnormal and inconclusive findings on diagnostic imaging of breast (principal); R92.0 Mammographic microcalcification found on diagnostic imaging of breast
CPT/HCPCS: 77063; 77067

== ENCOUNTER 2021-04-30 16:19 | Outpatient (CLI) | payer OTHER, SELFPAY ==
[2021-04-30 14:00] LABS: Abs Immature Grans 0.11 10^3/uL (0.0-0.06); Absolute Basophil Count 0.07 10^3/uL (0.0-0.2); Absolute Lymphocyte Count 2.49 10^3/uL (1.2-3.4); Absolute Monocyte Count 0.84 10^3/uL (0.1-0.8); Basophils % 0.7; Eosinophils % 2.8; HCT 43.7 % (36.0-46.0); HGB 14.1 g/dL (11.2-15.7); Lymphocytes % 23.2; MCH 30.2 pg (27.0-33.0); MCHC 32.3 % (32.0-36.0); MCV 93.6 fL (80-95); Monocytes % 7.8; Neutrophils % 64.5; Nucleated RBC 0 %; RBC 4.67 10^6/uL (3.93-5.22); RDW 13.3 % (11.7-14.6); RDW-SD 45.6 fL; WBC 10.71 10^3/uL (4.4-10.8)
[2021-04-30 14:01] LABS: Bilirubin Negative (Negative); Blood Small (Negative); Clarity Cloudy (Clear); Glucose 100 mg/dL (Negative); Ketones Negative (Negative); Leukocyte Esterase Moderate (Negative); Nitrite Negative (Negative); Specific Gravity >= 1.030 (1.005-1.025)
[2021-04-30 14:06] LABS: ALT 28 U/L (14-59); AST 15 U/L (15-37); Albumin 3.8 g/dL (3.4-5.0); Alkaline Phosphatase 90 U/L (46-116); Anion Gap 8.1 mmol/L (3-11); BUN 19 mg/dL (7-18); Bilirubin, Total 0.6 mg/dL (0.2-1.0); C-Reactive Protein 16.53 mg/dL (0.0-0.3); CO2 28.9 mmol/L (21.0-32.0); CREATININE 0.9 mg/dL (0.55-1.02); Calcium 8.7 mg/dL (8.5-10.1); Chloride 102 mmol/L (98-107); Glucose 89 mg/dL (74-106); Lipase 69 U/L (73-393); Potassium 3.9 mmol/L (3.5-5.1); Sodium 139 mmol/L (136-145); Total Protein 8.2 g/dL (6.4-8.2)
[2021-04-30 14:08] LABS: Epithelial Cells Moderate HPF (Negative); RBC 0-2 HPF (0-2); WBC 20-50 HPF (0-5)
[2021-04-30 14:09] LABS: Bacteria Few HPF (Negative); C & S Indicated? No/Sq. Contamination; Casts 0-2 Hyaline LPF (Negative); Crystals Negative HPF (Negative); Mucus Negative (Negative)
== END 2021-04-30 16:20 | disposition home or self-care (01) ==
LOC: LBO 16:25
PROVIDERS: PCP Family Medicine; Visit Provider Family Medicine
DX: R10.32 Left lower quadrant pain (principal); I10 Essential (primary) hypertension; R82.998 Other abnormal findings in urine
CPT/HCPCS: 36415; 80053; 83690; 81003; 81015; 85025; 86140

== ENCOUNTER 2021-07-10 02:24 | Outpatient (CLI) | payer OTHER, SELFPAY ==
--- NOTE | 2021-07-10 07:30 | DI.MAMMO_ITS ---
Exam(s) MG MAMMO DIAGNOSTIC UNI EXAM: MAMMO DIAGNOSTIC UNI CLINICAL HISTORY: 3-6 mo f/u abnormal mammo of rt,r92.8,z09 TECHNIQUE: Mammograms were interpreted according to the usual protocol including computer analysis w [employer]ava CAD system, tomosynthesis and C-view imaging. COMPARISON: FINDINGS: Right breast mammogram was obtained to follow microcalcifications of the upper outer quadrant of the right breast seen on prior mammogram of December 2020. additionally, mammograms from 2016 in 2018 were reviewed. On the current examination this group of microcalcifications is again seen numbering up t o 20 microcalcifications. On today's examination, particularly on tomographic imaging, the microcalc ifications appear more oriented in a branching intraductal pattern. There has been little overall ch monstre in number or size of microcalcifications. I would suggest that additional evaluation with ultrasound be obtained to attempt to identify this ar ea ultrasonographically. If the area is not identifiable on ultrasound, biopsy with stereotactic carmen hnique would be recommended due to the question of intraductal neoplasm. IMPRESSION: BI-RADS Cat 0 - Assessment Incomplete: Need additional imaging evaluation Breast Density - Category B - Scattered areas of fibroglandular density Density
== END 2021-07-10 02:44 ==
PROVIDERS: PCP Family Medicine; Visit Provider Family Medicine
DX: R92.8 Other abnormal and inconclusive findings on diagnostic imaging of breast (principal); N63.11 Unspecified lump in the right breast, upper outer quadrant
CPT/HCPCS: 77061; 77065; G0279

== ENCOUNTER 2021-07-24 10:15 | Day surgery (SDC) | payer OTHER, SELFPAY ==
--- NOTE | 2021-07-24 06:57 | W.COLOREPORT ---
Colonoscopy Report Date of procedure: 07/24/21 Pre-op diagnosis general: screening colonoscopy Post-op diagnosis procedure note: other (multiple polyps and diverticulosis) Procedure: Colonoscopy with polypectomy Surgeon: Anjali Parks Anesthesia Type: General:No Airway Estimated blood loss (mL): 5 Pathology: other (ascending polyp, transverse polyps. descending polyp, sigmoid polyps and rectal polyps) Complications: None Disposition: same day Indications: Ms. Warner Sweeney is a pleasant 61-year-old female who had a bout of diverticulitis in April.? She was treated with Augmentin.? At this time her pain has resolved.? She also has a history of IBS predominantly diarrhea.? Her last colonoscopy was in 2011 and was normal.? With her symptoms having resolved she should have a colonoscopy as a screening.? The procedure was explained in detail as well as the risks and the benefits.? I did discuss slight increase in risk of perforation depending on how extensive her diverticulosis. Risks, benefits and complications have been reviewed. Complications include but are not limited to bleeding, pain, perforation, missed small lesion/polyp, sore throat, aspiration and adverse reaction to the medications. Questions were entertained and answered to their satisfaction and they wished to proceed. No guarantees were given or implied. Prep: Miralax/Dulcolax Procedure Start Time: 11:52 Procedure End Time: 12:39 Findings: 30 minutes Procedure Description: After informed consent was obtained the patient was taken to the procedure room and placed in a left decubitous position. Monitors were applied and a time out was done. The patients name, date of , procedure, allergies to medications and metal in their body was reviewed. The patient was then sedated. Once sedated and comfortable a rectal exam was done. External exam was normal. Internal exam revealed a normal sphincter tone and no palpable masses. The scope was then introduced and retro-flexed. No internal hemorrhoids, polyps or masses were identified on retro-flexion. The scope was then advanced to the cecum without difficulty. The ileocecal vlave and appendiceal orifice were identified. The prep was good. The scope was then slowly retracted over 30 minutes back into the rectum. Polyps were removed with cold forceps in the ascending colon, transverse colon x2, descending colon, sigmoid colon x2 and rectum x3 and with hot snare in the Transverse colon x1, sigmoid colon x1. There was mild diverticulosis noted. The scope was removed and the patient was woken up and taken back to Same day surgery in stable condition. The patient tolerated the procedure well and there were no immediate complications. Follow up: The patient should follow up in 3 years unless they develop changes in bowel habits or other new gastrointestinal complaints.
--- NOTE | 2021-07-24 06:59 | W.PM.DSUDISC ---
Discharge Plan Disposition Patient Disposition: HOME Condition: Good Discharge Details Reason For Visit: Colonoscopy Attending Provider: Anjali Parks Primary Care Provider: Sol Porras Home Meds and New Rx's Prescriptions: Continued lamotrigine [Lamictal] 100 mg tablet 150 - 200 mg PO BID Qty: 60 0RF methylphenidate HCl 10 mg tablet 10 mg PO TID 0RF omeprazole 20 mg capsule,delayed release(DR/EC) 20 mg PO DAILY Qty: 90 3RF Rx Instructions: take one capsule/tablet daily for 4 weeks and then as needed gabapentin 100 mg capsule 100 mg PO TID Qty: 90 3RF methocarbamol 750 mg tablet 750 mg PO Q8H PRN (Reason: muscle pain) Qty: 30 0RF fluvoxamine 100 MG tablet 150 mg PO BID 0RF Rx Instructions: 1.5 TAB TWICE DAILY ESSENTIAL Balance with Lutein 1 EACH tablet 1 ea PO QAM 0RF trazodone 100 MG tablet 200 mg PO HS Qty: 60 0RF Rx Instructions: 2 TABS AT BEDTIME duloxetine 60 mg capsule,delayed release(DR/EC) See Rx Instructions .ROUTE .COMPLEX Qty: 90 1RF Dose Instruction: TAKE 1 CAPSULE BY MOUTH DAILY Rx Instructions: TAKE 1 CAPSULE BY MOUTH DAILY ibuprofen 200 MG tablet 600 mg PO TID PRN0RF Discontinued bisacodyl [Dulcolax (bisacodyl)] 5 mg tablet,delayed release (DR/EC) 5 mg PO ONCE Qty: 4 0RF Rx Instructions: Take according to provider's instructions for colonoscopy prep. polyethylene glycol 3350 17 gram/dose powder 17 g PO ONCE Qty: 238 0RF Rx Instructions: To be taken as directed by prescriber's office for colonoscopy prep. Discharge Instructions Instructions: Colorectal Polyps (DC), Diverticulosis (DC) Additional Instructions: Findings: multiple polyps diverticula Follow up: 3 years more then likely Please call if you develop: fevers >101.5 Nausea or Vomiting Abdominal pain that is not transient Rectal bleeding that is more then a tbsp A hard abdomen and inability to pass gas DAY SURGERY UNIT POST ENDOSCOPY INSTRUCTIONS Instructions for everyone who is given Anesthesia: For your safety, please do the following for the next 24 Hours: a. Do not drive or operate dangerous equipment b. Do not drink alcohol beverages or use any recreational drugs for the first 24 hours or while taking pain medications. The medications in your body may have a reaction that can be dangerous. c. Do not make any important decisions or sign any important papers 1. Generally there are no restrictions on your activity after a day or so has gone by, but you may feel a bit fatigued for a few days. 2. After you arrive home you may have a light meal and return to a normal diet as you can tolerate it without feeling sick to your stomach. 3. After surgery, you may feel pain or discomfort. This should be only transient, but if it persists please contact your doctor. 4. If there are any questions regarding the findings of your procedure, please feel free to contact your doctor. 6. If you are unable to contact your doctor with a problem, contact the hospital at [phone]. 7. Continue all your regular medications unless directed otherwise. I understand the above instructions and have no questions. Signature of Patient or Responsible Adult Escort Date/Time Name of Responsible Adult Escort Signature of Nurse Date/Time Stand Alone Forms: Anesthesia Discharge Inst., Max Kang (DSU) Activity:: Activity as Tolerated Diet:: high fiber Discharge Orders Discharge Orders: Discharge Order (Routine); Ordered 07/24/21 Ordered By: Anjali Parks
--- NOTE | 2021-07-24 06:59 | W.PREOPHP ---
Assessment and Plan Assessment and plan (1) Encounter for screening colonoscopy: Status: Acute Assessment and plan: Ms. Warner Sweeney is a pleasant 61-year-old female who had a bout of diverticulitis in April.? She was treated with Augmentin.? At this time her pain has resolved.? She also has a history of IBS predominantly diarrhea.? Her last colonoscopy was in 2011 and was normal.? With her symptoms having resolved she should have a colonoscopy as a screening.? The procedure was explained in detail as well as the risks and the benefits.? I did discuss slight increase in risk of perforation depending on how extensive her diverticulosis. Risks, benefits and complications have been reviewed. Complications include but are not limited to bleeding, pain, perforation, missed small lesion/polyp, sore throat, aspiration and adverse reaction to the medications. Questions were entertained and answered to their satisfaction and they wished to proceed. No guarantees were given or implied. Proceed with colonoscopy under sedation (2) Acute diverticulitis: History of Present Illness Narrative: Mrs Warner Sweeney is a pleasant 61-year-old female who had a bout of diverticulitis, diagnosed with a CT scan on 04/30.? This is the first time that she has had diverticulitis.? She had a normal colonoscopy in July 2011.? At this time she is due for a repeat screening colonoscopy.? She denies any melena, hematochezia, unintentional weight loss, family history of colon cancer.? She does have a history of IBS dominantly diarrhea.? Once in a while she will have constipation but that is rare.? Her past medical history is significant for ADD, bipolar disorder, GERD, chronic back pain and PTSD. Review of Systems All systems reviewed & are unremarkable except as noted in HPI and below PFSH All Active Problems Acute diverticulitis (Acute) 04/2021-confirmed by CT at [facility] H-treated with Augmentin Encounter for screening colonoscopy (Acute) Medical History ADD (attention deficit disorder) Managed by psychiatry-on generic Ritalin as of 03/2021 Bipolar disorder CAP (community acquired pneumonia) Cellulitis Cervicalgia 05/12/20 - fall on ice COVID-19 03/2021, minimal symtoms Depressive disorder (06/30/08) Managed by psychiatry Gastro-esophageal reflux Hot flash, menopausal po estrogen therapy: Low back pain Lumbosacral spondylosis without myelopathy Panic attack Personal history of nicotine dependence As of March 2021 about a 35-30-aidl-year history of smoking, patient declines CT lung cancer screening Primary fibromyalgia syndrome PTSD (post-traumatic stress disorder) Screening due Shoulder pain, acute Surgical History (Updated 07/24/21 @ 10:40 by Mabel Cisneros RN) Hx of appendectomy pt reports 2 appendectomy 2 years ago Ligation of fallopian tube Open Carpal Tunnel release (~11/2006) B/L shoulder surgery right Tonsillectomy and adenoidectomy Vaginal hysterectomy (12/04/05) Family History Son MDD (major depressive disorder) Trauma ADHD Depression Daughter Depression Substance use disorder Mother , SUICIDE AGE 50 Depression Father No problems noted. Sister No problems noted. Sister No problems noted. Sister No problems noted. Brother No problems noted. Brother No problems noted. Brother No problems noted. Brother No problems noted. Social History Smoking/Tobacco Use Status: Current every day Tobacco Type: cigarettes Tobacco: How many years used: 40 Quit status: considering quitting Second Hand Exposure: Yes Smoking risk assessment performed?: Yes Alcohol Intake: current Alcohol Intake frequency: holidays/special occasions only Drug use: Never Substance use type: does not use Household members: spouse Housing: house Communication Needs: None Do you need help understanding health information?: Never current occupation: NURSE Pets and animals: Yes Pets and animals: cat(s) and dog(s) Do you think of yourself as: straight/heterosexual Current gender identity: female What is your relationship status?: Do you belong to any clubs or organized social groups?: no Panel score (0-1 are the most socially isolated patients): 1 Jo/Pentecostal: None Special jo needs: No Seatbelt use: always Helmet use: Yes Helmet use: always Drive intox or ride w/intox security patrol driver: No Do you feel safe at home: Yes Do you feel safe in your relationship?: Yes Meds Allergies and Home Medications Allergies Allergy/AdvReac Type Severity Reaction Status Date / Time No Known Allergies Allergy Verified 07/24/21 10:40 Home Medications Medication Instructions Recorded Confirmed Type fluvoxamine 100 mg tablet 150 mg PO BID tab-cap 07/30/12 07/23/21 History pcjhcegb-giddjgq-iori-lutein 1 ea PO QAM 07/30/12 07/23/21 History tablet (ESSENTIAL Balance with Lutein) ibuprofen 200 mg tablet 600 mg PO TID PRN 01/02/14 07/23/21 History trazodone 100 mg tablet 200 mg PO HS #60 tab-cap 05/29/16 07/24/21 History lamotrigine 100 mg tablet 150 - 200 mg PO BID #60 tab-cap 05/02/19 07/23/21 Rx (Lamictal) methylphenidate HCl 10 mg tablet 10 mg PO TID tab-cap 12/03/20 07/24/21 History omeprazole 20 mg capsule,delayed 20 mg PO DAILY #90 cap 03/27/21 07/24/21 Rx release gabapentin 100 mg capsule 100 mg PO TID #90 cap 05/29/21 07/23/21 Rx methocarbamol 750 mg tablet 750 mg PO Q8H PRN #30 tab 05/29/21 07/23/21 Rx bisacodyl 5 mg tablet,delayed 5 mg PO ONCE #4 tab 06/04/21 07/23/21 Rx release (Dulcolax (bisacodyl)) polyethylene glycol 3350 17 17 g PO ONCE #238 g 06/04/21 07/24/21 Rx gram/dose oral powder duloxetine 60 mg capsule,delayed See Rx Instructions .ROUTE 07/15/21 07/23/21 Rx release .COMPLEX #90 cap Exam Const General: comfortable and no acute distress [facility] Head: normocephalic and atraumatic Resp Effort & Inspection: normal respiratory effort Auscultation: clear to auscultation bilaterally Cardio Rate: regular rate Rhythm: regular rhythm
[2021-07-24 10:31] VITALS: BP 113/77; PULSE 90; RESP 18; TEMP 36.4; O2SAT 97
[2021-07-24] MEDS: Lactated Ringers 1,000 ML 80 ML IV (10:42)
--- NOTE | 2021-07-24 11:09 | W.ANESPRE ---
General Info Date of Service Date Performed: 07/24/21 Height: 5 ft 6 in Weight: 102.8 kg Body Mass Index (BMI): 36.6 Surgical Procedure: Operation Date: 07/24/21 12:20 Proposed Procedure Side Surgeon p Colonoscopy Anjali Parks MD Meds Allergies and Home Medications Allergies Allergy/AdvReac Type Severity Reaction Status Date / Time No Known Allergies Allergy Verified 07/24/21 10:40 Home Medication Medication Instructions Recorded fluvoxamine 100 mg tablet 150 mg PO BID tab-cap 07/30/12 ghxylank-tmcoouz-pipx-lutein 1 ea PO QAM 07/30/12 tablet (ESSENTIAL Balance with Lutein) ibuprofen 200 mg tablet 600 mg PO TID PRN 01/02/14 trazodone 100 mg tablet 200 mg PO HS #60 tab-cap 05/29/16 lamotrigine 100 mg tablet 150 - 200 mg PO BID #60 tab-cap 05/02/19 (Lamictal) methylphenidate HCl 10 mg tablet 10 mg PO TID tab-cap 12/03/20 omeprazole 20 mg capsule,delayed 20 mg PO DAILY #90 cap 03/27/21 release gabapentin 100 mg capsule 100 mg PO TID #90 cap 05/29/21 methocarbamol 750 mg tablet 750 mg PO Q8H PRN #30 tab 05/29/21 bisacodyl 5 mg tablet,delayed 5 mg PO ONCE #4 tab 06/04/21 release (Dulcolax (bisacodyl)) polyethylene glycol 3350 17 17 g PO ONCE #238 g 06/04/21 gram/dose oral powder duloxetine 60 mg capsule,delayed See Rx Instructions .ROUTE 07/15/21 release .COMPLEX #90 cap Current Visit Medications: Current Medications Generic Name Dose Route Start Last Admin Trade Name Freq PRN Reason Stop Dose Admin Hyoscyamine Sulfate 0.125 mg 07/24/21 07:01 Hyoscyamine 0.125 Mg Sl/Oral/Chew SL DIRECTED PRN Ringer's Solution 1,000 mls @ 80 mls/hr 07/24/21 06:00 07/24/21 10:42 IV 08/22/21 23:59 80 mls/hr INFUSION MELLY Administration IV Miscellaneous Supplies 1 each 07/24/21 06:00 Iv Access IV 08/22/21 23:59 DIRECTED MELLY Ondansetron HCl 4 mg 07/24/21 07:01 Ondansetron 4 Mg/2 Ml Vial IVP Q4H PRN PRN Nausea / Vomiting Sodium Chloride 0 ml 07/24/21 06:00 Normal Saline Flush 10 Ml Syr IV 08/22/21 23:59 PRN PRN Sodium Chloride 0 ml 07/24/21 06:00 Normal Saline 10 Ml Vial IJ 08/22/21 23:59 DIRECTED PRN Sterile Water 0 ml 07/24/21 06:00 Water,Injection,Sterile 10 Ml Vial IJ 08/22/21 23:59 DIRECTED PRN PFSH Active Problems Active Problems: Problem Status Onset Code Acute diverticulitis K57.92 Encounter for screening colonoscopy Z12.11 Medical History Medical History ADD (attention deficit disorder) Managed by psychiatry-on generic Ritalin as of 03/2021 Bipolar disorder CAP (community acquired pneumonia) Cellulitis Cervicalgia 05/12/20 - fall on ice COVID-19 03/2021, minimal symtoms Depressive disorder (06/30/08) Managed by psychiatry Gastro-esophageal reflux Hot flash, menopausal po estrogen therapy: Low back pain Lumbosacral spondylosis without myelopathy Panic attack Personal history of nicotine dependence As of March 2021 about a 18-88-aute-year history of smoking, patient declines CT lung cancer screening Primary fibromyalgia syndrome PTSD (post-traumatic stress disorder) Screening due Shoulder pain, acute Surgical History Surgical History (Updated 07/24/21 @ 10:40 by Mabel Cisneros RN) Hx of appendectomy pt reports 2 appendectomy 2 years ago Ligation of fallopian tube Open Carpal Tunnel release (~11/2006) B/L shoulder surgery right Tonsillectomy and adenoidectomy Vaginal hysterectomy (12/04/05) Tobacco Smoking/Tobacco Use Status: Current every day Tobacco Type: cigarettes Smoking cigarettes per day: 15 Passive smoking exposure: Yes Second hand exposure: Yes Alcohol Alcohol Intake: current Alcohol intake frequency: holidays/special occasions only Substance Use Substance use: Never Substance use type: does not use Vital Signs and Lab Results Vital Signs Most Recent Vital Signs in EMR: Most Recent Vital Signs Temp Pulse Resp BP Pulse Ox 36.4 C L 90 18 113/77 97 07/24/21 10:31 07/24/21 10:31 07/24/21 10:31 07/24/21 10:31 07/24/21 10:31 Lab Results Blood Type / Crossmatch: No Data to Display Complete Blood Count: No Data to Display Complete Metabolic Panel: No Data to Display Liver Function Panel: No Data to Display Coagulation Panel: No Data to Display Cardiac Panel: No Data to Display Arterial Blood Gas: No Data to Display Venous Blood Gas: No Data to Display Pancreas Panel: No Data to Display Thyroid Panel: No Data to Display Infectious Disease: No Data to Display Blood Cultures: No Data to Display Toxicology Panel: No Data to Display Imaging and Studies Imaging and Studies Study information below may be from another EMR and interpreted by another provider. Please see original notes in EMR for more complete details. Stress Test Summary: 2014: negative for ischemia. Anesthesia Assessment and Plan Anesthesia History Personal History: No History of Anesthesia Complications Family History: Family History Unknown Exercise Tolerance Exercise Tolerance: Metabolic Equivalents>4 Cardiac & Pulmonary Exam Cardiac Exam: Normal S1/S2 Heart Sounds Pulmonary Exam: Clear Bilateral Breath Sounds Implantable Cardiac Device Does patient have a Pacemaker or an ICD?: No Airway Exam Known Difficult Airway: No Mallampati Class: 2 Mouth Opening: Normal (> 3cm) Thyromental Distance: Greater than 3 cm Neck Range of Motion: Full ROM Neck Circumference: Normal Teeth Condition: Normal Dentition ASA Classification ASA Score: ASA 2 Emergency Case?: No NPO Status NPO Status: NPO Clears >2 hours, Solids >8 hours Anesthesia Plan Resuscitation Status: Full Code Anesthesia Technique: General Anesthesia Airway Planned: Natural Airway Monitors Used: Standard Monitors Preoperative Comments:: 61 yo female for colonoscopy. Sig PMHX: neck/back pain, anxiety/bipolar, GERD (only uses omeprazole PRN), fibromyalgia, smoker, occ EtOH. Previous Anes: mcclure 2 grade 1.
[2021-07-24 11:12] VITALS: BMI 36.6
--- NOTE | 2021-07-24 11:54 | BOWEL_PTH ---
PATIENT: Wendy Quezada LOC: [facility] U#:[id number] AGE/SX: 61/F ROOM: RE07/24/[address]: Anjali Parks MD : 1960 BED: DIS: 07/24/2021 SPEC #: [id number] RECD: 07/25/21 11:24 STATUS: JOELLEN REQ #: [id number] TRACY: 07/24/21 11:[address]: Anjali Parks DEPT: Surgical Specimen RECD BY: Georgiana Reyes ENTERED: 07/25/21 11:37 SP TYPE: Bowel OTHR DR: Sol Porras, MEGAN Tissues: 1 - BIOPSY BOWEL 2 - BIOPSY BOWEL 3 - BIOPSY BOWEL 4 - BIOPSY BOWEL 5 - BIOPSY BOWEL Procedures: GROSS AND MICRO LEVEL 4 Comments: [id number]
[2021-07-24 12:49] VITALS: BP 92/53; PULSE 78; RESP 20; TEMP 36.2; O2SAT 95
--- NOTE | 2021-07-24 13:04 | W.ANESPOSTOP ---
Postoperative Evaluation Date, Time and Location Date Performed: 07/24/21 Time Performed: 13:04 Patient Location: Day Surgery Unit Vital Signs Most Recent Imported Vital Signs: Most Recent Vital Signs Temp Pulse Resp BP Pulse Ox 36.2 C L 78 20 92/53 L 95 07/24/21 12:49 07/24/21 12:49 07/24/21 12:49 07/24/21 12:49 07/24/21 12:49 Pain Score Most Recent Pain Score: Most Recent Pain Score Pain Level 0 07/24/21 12:49 Assessment Mental Status: Awake (Alert & Oriented to Patient Baseline) Airway and Respiratory Function: Patent airway with normal (patient baseline) respiratory exam Cardiovascular Function: Hemodynamically Stable Hydration Status: Adequately Hydrated Nausea & Vomiting: No Nausea or Vomiting Pain: Pt. Denies Any Pain Peripheral Nerve Block: Patient did not receive a nerve block
[2021-07-24 13:19] VITALS: BP 104/70; PULSE 73; RESP 18; TEMP 36.2; O2SAT 96
== END 2021-07-24 14:06 | disposition home or self-care (01) ==
LOC: SUR 10:15
PROVIDERS: Visit Provider Surgery
PROC: 0DJD8ZZ Inspection of Lower Intestinal Tract, Via Natural or Artificial Opening Endoscopic (ICD-10-PCS; CPT 45378; principal; 2021-07-24 12:15)
DX: Z12.11 Encounter for screening for malignant neoplasm of colon (principal); K63.5 Polyp of colon; K62.1 Rectal polyp; K57.30 Diverticulosis of large intestine without perforation or abscess without bleeding; K21.9 Gastro-esophageal reflux disease without esophagitis
CPT/HCPCS: 45385; 45380; 88305; J2704

== ENCOUNTER 2022-02-09 10:15 | Emergency (ER) | payer OTHER, SELFPAY ==
[2022-02-09 10:19] VITALS: BP 148/79; PULSE 116; RESP 18; TEMP 37; O2SAT 97
[2022-02-09] MEDS: Tetracaine 0.5% 4 ML BTL (11:17)
[2022-02-09] MEDS: Fluorescein STRIPS 100/BOX 1 MG (11:17)
[2022-02-09] MEDS: Balanced Salt Solution 15 ML BTL (11:17)
--- NOTE | 2022-02-09 11:29 | W.ED.GENAD ---
Discharge Plan Disposition Patient Disposition: Home Condition: Stable Discharge Details Clinical Impression: Corneal abrasion Primary Care Provider: Justin Galvez ED Provider: Gary Naidu Home Meds and New Rx's Prescriptions: Continued lamotrigine [Lamictal] 100 mg tablet 150 - 200 mg PO BID Qty: 60 0RF methylphenidate HCl 10 mg tablet 10 mg PO TID gabapentin 100 mg capsule 100 mg PO TID Qty: 90 3RF omeprazole 20 mg capsule,delayed release(DR/EC) 20 mg PO DAILY Qty: 90 3RF Rx Instructions: take one capsule/tablet daily for 4 weeks and then as needed methocarbamol 750 mg tablet 750 mg PO Q6H PRN (Reason: muscle pain) Qty: 60 0RF prednisone 10 mg tablet 10 mg PO DAILY Qty: 60 0RF Rx Instructions: Take 2 tablets to equal 20mg x 3 days then reduce to 10mg daily x 7 days then reduce to 5mg daily. fluvoxamine 100 MG tablet 150 mg PO BID Rx Instructions: 1.5 TAB TWICE DAILY ESSENTIAL Balance with Lutein 1 EACH tablet 1 ea PO QAM trazodone 100 MG tablet 200 mg PO HS Qty: 60 Rx Instructions: 2 TABS AT BEDTIME duloxetine 60 mg capsule,delayed release(DR/EC) See Rx Instructions .ROUTE .COMPLEX Qty: 90 1RF Dose Instruction: TAKE 1 CAPSULE BY MOUTH DAILY Rx Instructions: TAKE 1 CAPSULE BY MOUTH DAILY ibuprofen 200 MG tablet 600 mg PO TID PRN Discharge Instructions Instructions: Corneal Abrasion (ED) Additional Instructions: Erythromycin eye ointment as directed. Avoid rubbing your eyes. You may also use [id number]-kcv-ijwwyyv eyedrops for red-itchy eyes which will help with symptomatic control. Please watch for new or worsening symptoms and return to the ER for any concerns. Lastly, I would like you to contact your eye doctor tomorrow to discuss your ER visit and need for outpatient reevaluation. Discharge Data Discharge Date/Time-TO BE ENTERED AT DEPARTURE: 02/09/22 12:28 Medical Decision Making 61-year-old female who does not wear contacts presents for left eye irritation. She states last night her right eye felt itchy, she questioned if she got cat hair in her eye, and rubbed her eyes. Went to bed feeling well but upon waking this morning her left eye was irritated. She does report slight blurry vision. Please see visual acuities. Patient reports symptoms resolved with tetracaine. Examination reveals a small left corneal abrasion. We will treat with erythromycin eye ointment Standard discharge and return precautions were provided. Patient understands, is agreeable to this plan, and has no additional questions or concerns upon discharge. This documentation was generated using [employer] system, please disregard any oddities of phrase or misspellings. Medical Records Medical records reviewed: Yes I reviewed the patient's medical records. Sign Out No HPI General Mode of arrival: ambulatory. Date/Time Provider Initiated Documentation: 02/09/22 10:25. Limitations to Documentation: no limitations. Information obtained by: patient. History of Present Illness 61 year old F presents to the emergency department with the chief complaint of Left eye pain, described as mild, with intensity rated at 1. Quality is described as other (Irritation), and is localized to the eyes and left. Patient reports no radiation. Patient started experiencing this day(s) (1) and it has been constant. No relieving factors improve symptom(s), No exacerbating factors reported . Patient notes other (Minimal left blurry vision). Patient did receive the following treatments prior to arrival, none Related Data Home Medications Medication Instructions Recorded Confirmed fluvoxamine 100 mg tablet 150 mg PO BID 07/30/12 02/09/22 iobkxsxp-xdiyylm-wzjt-lutein 1 ea PO QAM 07/30/12 02/09/22 tablet (ESSENTIAL Balance with Lutein) ibuprofen 200 mg tablet 600 mg PO TID PRN 01/02/14 02/09/22 trazodone 100 mg tablet 200 mg PO HS #60 tab-caps 05/29/16 02/09/22 lamotrigine 100 mg tablet 150 - 200 mg PO BID #60 tab-caps 05/02/19 02/09/22 (Lamictal) methylphenidate HCl 10 mg tablet 10 mg PO TID 12/03/20 02/09/22 gabapentin 100 mg capsule 100 mg PO TID #90 caps 05/29/21 02/09/22 duloxetine 60 mg capsule,delayed See Rx Instructions .Route 10/28/21 02/09/22 release .COMPLEX #90 caps methocarbamol 750 mg tablet 750 mg PO Q6H PRN muscle pain #60 12/11/21 02/09/22 tabs omeprazole 20 mg capsule,delayed 20 mg PO DAILY #90 caps 12/11/21 02/09/22 release prednisone 10 mg tablet 10 mg PO DAILY #60 tabs 12/30/21 02/09/22 Previous Rx's Medication Instructions Recorded lamotrigine 100 mg tablet 150 - 200 mg PO BID #60 tab-caps 05/02/19 (Lamictal) gabapentin 100 mg capsule 100 mg PO TID #90 caps 05/29/21 duloxetine 60 mg capsule,delayed See Rx Instructions .Route 10/28/21 release .COMPLEX #90 caps methocarbamol 750 mg tablet 750 mg PO Q6H PRN muscle pain #60 12/11/21 tabs omeprazole 20 mg capsule,delayed 20 mg PO DAILY #90 caps 12/11/21 release prednisone 10 mg tablet 10 mg PO DAILY #60 tabs 12/30/21 Allergies Allergy/AdvReac Type Severity Reaction Status Date / Time No Known Allergies Allergy Verified 02/09/22 10:21 General Stated Complaint: EyeProblem ANGÉLICA: 4 Review of Systems Constitutional Constitutional: Denies fever(s) and Denies headache(s) Eyes Eyes: Reports blurry vision, Denies eye discharge, Denies floaters, Reports irritation, Reports itchy eyes, Denies loss of vision and Denies photophobia ENT Ears, Nose, Mouth, and Throat: Denies headache(s), Denies nasal congestion and Denies neck pain Musculoskeletal Musculoskeletal: Denies neck pain Integumentary/Breasts Skin/Breast: Denies rash Neurologic Neurologic: Denies headache(s) and Denies loss of vision Allergic/Immunologic Allergic/Immunologic: Reports itchy eyes PFSH All Active Problems Corneal abrasion (Acute) Polymyalgia rheumatica (Acute) Bilateral shoulder pain (Acute) Tubular adenoma of colon (Acute) Hyperplastic colon polyp (Acute) Acute diverticulitis (Acute) 04/2021-confirmed by CT at [facility]-treated with Augmentin Medical History ADD (attention deficit disorder) Managed by psychiatry-on generic Ritalin as of 03/2021 Bipolar disorder CAP (community acquired pneumonia) Cellulitis Cervicalgia 05/12/20 - fall on ice COVID-19 03/2021, minimal symtoms Depressive disorder (06/30/08) Managed by psychiatry Encounter for screening colonoscopy Gastro-esophageal reflux Hot flash, menopausal po estrogen therapy: Low back pain Lumbosacral spondylosis without myelopathy Panic attack Personal history of nicotine dependence As of March 2021 about a 59-74-yozl-year history of smoking, patient declines CT lung cancer screening Primary fibromyalgia syndrome PTSD (post-traumatic stress disorder) Screening due Shoulder pain, acute Surgical History History of colonoscopy (~07/2021) Hx of appendectomy pt reports 2 appendectomy 2 years ago Ligation of fallopian tube Open Carpal Tunnel release (~11/2006) B/L shoulder surgery right Tonsillectomy and adenoidectomy Vaginal hysterectomy (12/04/05) Family History Son MDD (major depressive disorder) Trauma ADHD Depression Daughter Depression Substance use disorder Mother , SUICIDE AGE 50 Depression Father No problems noted. Sister No problems noted. Sister No problems noted. Sister No problems noted. Brother No problems noted. Brother No problems noted. Brother No problems noted. Brother No problems noted. Social History Smoking/Tobacco Use Status: Current every day Tobacco Type: cigarettes Tobacco: How many years used: 40 Quit status: considering quitting Second Hand Exposure: Yes Smoking risk assessment performed?: Yes Alcohol Intake: current Alcohol Intake frequency: holidays/special occasions only Drug use: Never Substance use type: does not use Household members: spouse Housing: house Communication Needs: None Do you need help understanding health information?: Never current occupation: NURSE Pets and animals: Yes Pets and animals: cat(s) and dog(s) Do you think of yourself as: straight/heterosexual Current gender identity: female What is your relationship status?: Do you belong to any clubs or organized social groups?: no Panel score (0-1 are the most socially isolated patients): 1 Jo/Mandaen: None Special jo needs: No Seatbelt use: always Helmet use: Yes Helmet use: always Drive intox or ride w/intox milk driver: No Do you feel safe at home: Yes Do you feel safe in your relationship?: Yes Exam Const General: cooperative, healthy appearing, comfortable and no acute distress Orientation: alert and awake [facility] Head: normal to inspection, normocephalic and atraumatic Face and sinus: normal facial exam Mouth: moist mucous membranes Eyes Alignment and Position: alignment normal Periorbital: periorbital findings normal Eyelids: eyelids normal and other (Left eyelid flipped) Conjunctivae: conjunctival abnormality left conjunctival injection (Minimal) Sclera: sclerae normal Cornea: corneas abnormal on the left fluorescein used and fluorescein used Pupils: PERRL EOM: EOM intact bilaterally Direct ophthalmoscopy: normal light reflex Eyes/upper lids images: 1. Abrasion Neck Neck: normal visual inspection, full ROM, trachea midline and supple Resp Effort & Inspection: normal respiratory effort and able to speak in complete sentences Skin General skin exam: no rashes or lesions noted Neuro General: patient alert, patient awake, moves all extremities and no focal motor deficits Sensory Exam: no sensory deficits noted Psych Appearance: grossly normal Mental Status: mental status grossly normal Course Vital Signs Vital signs: Vital Signs Temperature 37.0 C 02/09/22 10:19 Pulse 116 H 02/09/22 10:19 Respiratory Rate 18 02/09/22 10:19 Blood Pressure 148/79 H 02/09/22 10:19 Pulse Oximetry 97 02/09/22 10:19 Temperature 37.0 C 02/09/22 10:19 Temperature Source Temporal Artery Scan 02/09/22 10:19 Pulse 116 H 02/09/22 10:19 Respiratory Rate 18 02/09/22 10:19 Respiratory Effort 02/09/22 10:22 Blood Pressure 148/79 H 02/09/22 10:19 Blood Pressure Position Sitting 02/09/22 10:19 Pulse Oximetry 97 02/09/22 10:19 Oxygen Delivery Method Room Air 02/09/22 10:19 Oxygen Flow Rate 0 02/09/22 10:19
[2022-02-09] MEDS: Erythromycin Ophth Oint 3.5 GM TUBE OU (11:58)
== END 2022-02-09 12:28 | disposition home or self-care (01) ==
PROVIDERS: Emergency Provider Physician Assistant; PCP Nurse Practitioner Family
DX: S05.02XA Injury of conjunctiva and corneal abrasion without foreign body, left eye, initial encounter (principal); F98.8 Other specified behavioral and emotional disorders with onset usually occurring in childhood and adolescence; Z86.16 Personal history of COVID-19; X58.XXXA Exposure to other specified factors, initial encounter
CPT/HCPCS: 99283; 99284

== ENCOUNTER 2022-03-21 12:33 | Outpatient (CLI) | payer OTHER, SELFPAY ==
[2022-03-21 07:22] LABS: ESR 16 mm/hr (0-30)
[2022-03-21 08:00] LABS: ALT 21 U/L (14-59); AST 12 U/L (15-37); Albumin 4.1 g/dL (3.4-5.0); Alkaline Phosphatase 80 U/L (46-116); Anion Gap 10.4 mmol/L (3-11); BUN 21 mg/dL (7-18); Bilirubin, Total 0.5 mg/dL (0.2-1.0); CO2 26.6 mmol/L (21.0-32.0); CREATININE 1.1 mg/dL (0.55-1.02); Calcium 9.1 mg/dL (8.5-10.1); Calculated LDL 122 mg/dL (<100); Chloride 102 mmol/L (98-107); Cholesterol 212 mg/dL (<200); Estimated GFR 56.81 (mL/min/1.73m2); Glucose 135 mg/dL (74-106); HDL Cholesterol 75 mg/dL (40-60); Potassium 3.9 mmol/L (3.5-5.1); Sodium 139 mmol/L (136-145); Total Protein 7.9 g/dL (6.4-8.2); Triglyceride 78 mg/dL (<150)
[2022-03-21 08:24] LABS: C-Reactive Protein 0.65 mg/dL (0.0-0.3)
== END 2022-03-21 12:34 | disposition home or self-care (01) ==
LOC: LBO 12:44
PROVIDERS: PCP Nurse Practitioner Family; Visit Provider Nurse Practitioner Family
DX: M35.3 Polymyalgia rheumatica (principal); E78.5 Hyperlipidemia, unspecified
CPT/HCPCS: 36415; 80053; 80061; 85652; 86140

== ENCOUNTER 2022-09-02 11:58 | Outpatient (REF) | payer OTHER, SELFPAY | END 2022-09-02 11:59 | disposition home or self-care (01) | LOC: LBN 11:58 | PROVIDERS: PCP Nurse Practitioner Family; Visit Provider Nurse Practitioner Family | DX: M79.675 Pain in left toe(s) (principal); L08.89 Other specified local infections of the skin and subcutaneous tissue | CPT/HCPCS: 87077; 87070; 87186; 87205 ==

== ENCOUNTER 2022-09-16 10:28 | Emergency (ER) | payer OTHER, SELFPAY ==
[2022-09-16 10:30] VITALS: BP 142/87; PULSE 82; RESP 16; TEMP 37.1; O2SAT 98
[2022-09-16] MEDS: Fluorescein STRIPS 100/BOX 1 MG OP (10:53)
[2022-09-16] MEDS: Tetracaine 0.5% 4 ML BTL OP (10:53)
--- NOTE | 2022-09-16 11:08 | W.ED.GENAD ---
Discharge Plan Disposition Patient Disposition: Home Discharge Details Clinical Impression: Conjunctivitis Primary Care Provider: Justin Galvez ED Provider: Georgiana Arenas Home Meds and New Rx's Prescriptions: New polymyxin B sulf-trimethoprim [Polytrim] 10,000 unit- 1 mg/mL drops 1 drp ophthalmic (eye) QID 5 Days Qty: 10 0RF Continued lamotrigine [Lamictal] 100 mg tablet 150 - 200 mg PO BID Qty: 60 0RF methylphenidate HCl 10 mg tablet 10 mg PO TID Patient Comments: does not take Rx Instructions: extended release 20 mg extended for total of 30mg in am 10mg prn in afternoon methocarbamol 750 mg tablet 750 mg PO Q6H PRN (Reason: muscle pain) Qty: 60 0RF Patient Comments: does not take duloxetine 60 mg capsule,delayed release(DR/EC) See Rx Instructions .ROUTE .COMPLEX Qty: 90 1RF Dose Instruction: TAKE 1 CAPSULE BY MOUTH DAILY Rx Instructions: TAKE 1 CAPSULE BY MOUTH DAILY fluvoxamine 100 MG tablet 150 mg PO BID Rx Instructions: 1.5 TAB TWICE DAILY ESSENTIAL Balance with Lutein 1 EACH tablet 1 ea PO QAM trazodone 100 MG tablet 200 mg PO HS Qty: 60 Rx Instructions: 2 TABS AT BEDTIME ibuprofen 200 MG tablet 600 mg PO TID PRN Discharge Instructions Instructions: Conjunctivitis (ED) Additional Instructions: Use eyedrops as prescribed Follow-up with your eye doctor at your scheduled appointment Return earlier should you have new or worsening complaints including acute vision change Referrals: Justin Galvez, SOFTWARE ASSET MANAGER [Primary Care Provider] - 1 day Discharge Data Discharge Date/Time-TO BE ENTERED AT DEPARTURE: 09/16/22 11:28 Medical Decision Making 62-year-old female presenting with report of left eye sensitivity Punctate uptake to cornea on left, will initiate Polytrim, appointment on Thursday with senior policy advisor, patient encouraged to keep this Low clinical suspicion for glaucoma clinically Visual acuity reviewed, patient denies acute vision change Return precautions reviewed and patient expressed understanding Medical Records Medical records reviewed: Yes I reviewed the patient's medical records. Lab Data Lab results reviewed: Yes I reviewed the patient's lab results. HPI General Date/Time Provider Initiated Documentation: 09/16/22 10:41. HPI Narrative: 62-year-old female presents with report of left eye pain for the past 2 weeks, gradually becoming worse now with purulent drainage this morning. Light sensitive. Denies known trauma. States her eyes feels itchy and is now uncomfortable. Denies significant changes some blurred vision from the drainage per patient. Denies headaches, fever. Denies any new soaps, detergents, creams. Denies contact lens use. Does wear glasses per patient. Related Data Home Medications Medication Instructions Recorded Confirmed fluvoxamine 100 mg tablet 150 mg PO BID 07/30/12 09/16/22 xijnrgos-boqfvsi-jqmo-lutein 1 ea PO QAM 07/30/12 09/16/22 tablet (ESSENTIAL Balance with Lutein) ibuprofen 200 mg tablet 600 mg PO TID PRN 01/02/14 09/16/22 trazodone 100 mg tablet 200 mg PO HS #60 tab-caps 05/29/16 09/16/22 lamotrigine 100 mg tablet 150 - 200 mg PO BID #60 tab-caps 05/02/19 09/16/22 (Lamictal) methocarbamol 750 mg tablet 750 mg PO Q6H PRN muscle pain #60 22 09/01/22 tabs duloxetine 60 mg capsule,delayed See Rx Instructions .Route 03/04/22 09/16/22 release .COMPLEX #90 caps methylphenidate HCl 10 mg tablet 10 mg PO TID 09/01/22 09/01/22 polymyxin B sulfate 10,000 1 drp ophthalmic (eye) QID 5 days 09/16/22 unit-trimethoprim 1 mg/mL eye #10 mL drops (Polytrim) Previous Rx's Medication Instructions Recorded lamotrigine 100 mg tablet 150 - 200 mg PO BID #60 tab-caps 05/02/19 (Lamictal) methocarbamol 750 mg tablet 750 mg PO Q6H PRN muscle pain #60 12/11/21 tabs duloxetine 60 mg capsule,delayed See Rx Instructions .Route 03/04/22 release .COMPLEX #90 caps polymyxin B sulfate 10,000 1 drp ophthalmic (eye) QID 5 days 09/16/22 unit-trimethoprim 1 mg/mL eye #10 mL drops (Polytrim) Allergies Allergy/AdvReac Type Severity Reaction Status Date / Time No Known Allergies Allergy Verified 09/16/22 10:34 General Stated Complaint: EyeProblem ANGÉLICA: 4 PFSH All Active Problems (Updated 09/16/22 @ 11:20 by REBECA Power) Conjunctivitis (Acute) Acute diverticulitis (Acute) 04/2021-confirmed by CT at [facility] H-treated with Augmentin Hyperplastic colon polyp (Acute) Tubular adenoma of colon (Acute) Polymyalgia rheumatica (Acute) Hyperlipidemia (Acute) Atypical ductal hyperplasia of right breast (Acute) Partial mastectomy 10/28/21 Prediabetes (Acute) Frequent falls (Acute) Medical History ADD (attention deficit disorder) Managed by psychiatry-on generic Ritalin as of 03/2021 Bilateral shoulder pain Bipolar disorder Breast [place] in [place] [facility] [place] RIGHT partial mastectomy/lumpectomy CAP (community acquired pneumonia) Cellulitis Cervicalgia 05/12/20 - fall on ice Corneal abrasion COVID-19 03/2021, minimal symtoms Depressive disorder (06/30/08) Managed by psychiatry Encounter for screening colonoscopy Gastro-esophageal reflux Hot flash, menopausal po estrogen therapy: Low back pain Lumbosacral spondylosis without myelopathy Panic attack Personal history of nicotine dependence As of March 2021 about a 97-31-rtwq-year history of smoking, patient declines CT lung cancer screening Primary fibromyalgia syndrome PTSD (post-traumatic stress disorder) Screening due Shoulder pain, acute Surgical History History of colonoscopy (~07/2021) Hx of appendectomy pt reports 2 appendectomy 2 years ago Ligation of fallopian tube Open Carpal Tunnel release (~11/2006) B/L shoulder surgery right Tonsillectomy and adenoidectomy Vaginal hysterectomy (12/04/05) Family History Son MDD (major depressive disorder) Trauma ADHD Depression Daughter Depression Substance use disorder Mother , SUICIDE AGE 50 Depression Father No problems noted. Sister No problems noted. Sister No problems noted. Sister No problems noted. Brother No problems noted. Brother No problems noted. Brother No problems noted. Brother No problems noted. Social History Smoking/Tobacco Use Status: Current every day Tobacco Type: cigarettes Tobacco: How many years used: 40 Quit status: considering quitting Second Hand Exposure: Yes Smoking risk assessment performed?: Yes Alcohol Intake: current Alcohol Intake frequency: holidays/special occasions only Drug use: Never Substance use type: does not use Household members: spouse Housing: house Communication Needs: None Do you need help understanding health information?: Never current occupation: NURSE Pets and animals: Yes Pets and animals: cat(s) and dog(s) Do you think of yourself as: straight/heterosexual Current gender identity: female What is your relationship status?: Do you belong to any clubs or organized social groups?: no Panel score (0-1 are the most socially isolated patients): 1 Jo/Taoism: None Special jo needs: No Seatbelt use: always Helmet use: Yes Helmet use: always Drive intox or ride w/intox road oiling truck driver: No Do you feel safe at home: Yes Do you feel safe in your relationship?: Yes Exam Eyes Conjunctivae: conjunctival abnormality Cornea: fluorescein used (Punctate uptake to lower quadrants of eye, pupils equal round reactive to l) Other: No evidence of glaucoma, clinically and with the presence of punctate uptake to cornea, suspicion for carotid conjunctivitis versus just Course Vital Signs Vital signs: Vital Signs Temperature 37.1 C 09/16/22 10:30 Pulse 82 09/16/22 10:30 Respiratory Rate 16 09/16/22 10:30 Blood Pressure 142/87 H 09/16/22 10:30 Pulse Oximetry 98 09/16/22 10:30 Temperature 37.1 C 09/16/22 10:30 Temperature Source Skin 09/16/22 10:30 Pulse 82 09/16/22 10:30 Respiratory Rate 16 09/16/22 10:30 Respiratory Effort Normal, Non-Labored 09/16/22 10:35 Blood Pressure 142/87 H 09/16/22 10:30 Blood Pressure Position Sitting 09/16/22 10:30 Pulse Oximetry 98 09/16/22 10:30 Oxygen Delivery Method Room Air 09/16/22 10:30 Oxygen Flow Rate 0 09/16/22 10:30 Pain Level 1 09/16/22 10:30
== END 2022-09-16 11:28 | disposition home or self-care (01) ==
PROVIDERS: Emergency Provider Physician Assistant; PCP Nurse Practitioner Family
DX: H10.32 Unspecified acute conjunctivitis, left eye (principal)
CPT/HCPCS: 99283; 99284

== ENCOUNTER → 2022-11-10 13:35 | Outpatient (CLI) | payer OTHER, SELFPAY ==
--- NOTE | 2022-11-10 13:27 | DI.RAD_ITS ---
Exam(s) XR SHOULDER RT COMPLETE 2+V EXAM: XR SHOULDER RT COMPLETE 2+V CLINICAL HISTORY: right shoulder pain M25.519. TECHNIQUE: 2D digital imaging was performed of the right shoulder. Five images were obtained. AP, Grashey, Y-view and axillary views were obtained. COMPARISON: CR XR SHOULDER RT COMPLETE 2+V from 06/12/2020 FINDINGS: BONES: No acute fracture is present. No bony destructive lesion is seen. JOINTS: No dislocation present. There is stable widening of the acromioclavicular joint. SOFT TISSUE: Soft tissue calcifications are again seen adjacent to the greater tuberosity suggesting calcific tendinosis. IMPRESSION: Stable appearance of the right shoulder. Findings of calcific tendinosis. DATA REPOSITORY: RADIATION DOSE DELIVERED:
== END ==
PROVIDERS: PCP Nurse Practitioner Family; Visit Provider Nurse Practitioner Family
DX: M65.221 Calcific tendinitis, right upper arm; M25.511 Pain in right shoulder
CPT/HCPCS: 73030

== ENCOUNTER → 2023-02-04 02:05 | Outpatient (CLI) | payer OTHER, SELFPAY ==
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
== END ==
PROVIDERS: PCP Nurse Practitioner Family; Visit Provider Student in an Organized Health Care Education/Training Program
DX: M67.813 Other specified disorders of tendon, right shoulder (principal)
CPT/HCPCS: 73221

== ENCOUNTER 2023-04-06 10:39 | Emergency (ER) | payer OTHER, SELFPAY ==
[2023-04-06 10:41] VITALS: BP 133/61; PULSE 109; RESP 20; TEMP 36.7; O2SAT 96
[2023-04-06 12:24] VITALS: BP 108/77; PULSE 96; RESP 16; TEMP 36.8; O2SAT 98
== END 2023-04-06 13:12 | disposition home or self-care (01) ==
PROVIDERS: Emergency Provider Emergency Medicine; PCP Nurse Practitioner Family
DX: M54.50 Low back pain, unspecified (principal)
CPT/HCPCS: 99283

== ENCOUNTER 2023-04-06 14:57 | Emergency (ER) | payer OTHER, SELFPAY ==
[2023-04-06 15:04] VITALS: BP 110/74; PULSE 98; RESP 16; TEMP 36.6; O2SAT 100
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
[2023-04-06] MEDS: Ketorolac 15 MG/ML VIAL IM (18:13)
[2023-04-06] MEDS: HYDROmorphone 2 MG/ML SYR IM (18:13)
[2023-04-06] MEDS: Gabapentin 300 MG CAP PO (18:13)
--- NOTE | 2023-04-06 19:17 | DI.RAD_ITS ---
Exam(s) XR LUMBAR SPINE COMPLETE EXAM: XR LUMBAR SPINE COMPLETE CLINICAL HISTORY: lower back pain. TECHNIQUE: 2D digital imaging was performed of the lumbar spine. Five images were obtained. AP, la teral, right oblique, left oblique and L5-S1 spot views were obtained. COMPARISON: CR XR LUMBAR SPINE COMPLETE from 10/10/[address] ABDOMEN PELVIS W from 04/30/2021 FINDINGS: BONES: No fracture or destructive lesion. Indeterminate aged compression deformities seen at T12 and T11. There are small endplate osteophytes seen at L5-S1. There are degenerative changes of the facet s at L5-S1. DISKS: There is moderate disc space narrowing at L5-S1. ALIGNMENT: Lumbar spinal alignment is within normal limits. No spondylolysis or spondylolisthesis. SOFT TISSUE: Vascular calcifications are present. Surgical clips are seen in the right lower quadran t of the abdomen. IMPRESSION: Degenerative changes seen at L5-S1. DATA REPOSITORY: RADIATION DOSE DELIVERED:
--- NOTE | 2023-04-06 19:35 | DI.VRAD_ITS ---
PROCEDURE INFORMATION: Exam: XR Lumbosacral Spine Exam date and time: 04/06/2023 6:52 PM Age: 63 years old Clinical indication: Other: Low back pain TECHNIQUE: Imaging protocol: Radiologic exam of the lumbosacral spine. Views: 4 or 5 views. COMPARISON: CR XR LUMBAR SPINE COMPLETE 10/10/2020 1:07 PM FINDINGS: Bones/joints: There is no evidence of acute fracture.There is no evidence of malalignment or dislocation. Intervertebral disc space narrowing at L5/S1 may represent degenerative disc disease. Mild compression of fractures of unknown age T11 and T12 Soft tissues: Unremarkable. IMPRESSION: 1. There is no evidence of acute fracture.There is no evidence of malalignment or dislocation. 2. Intervertebral disc space narrowing at L5/S1 may represent degenerative disc disease. Dictated and Authenticated by: Sanna Ruano MD. Ordering:BETY Simental MD
== END 2023-04-06 20:01 | disposition home or self-care (01) ==
PROVIDERS: Emergency Provider Emergency Medicine; PCP Nurse Practitioner Family
DX: M54.50 Low back pain, unspecified (principal); M35.3 Polymyalgia rheumatica; F17.210 Nicotine dependence, cigarettes, uncomplicated
CPT/HCPCS: 96372; 99283; 72110; J1170; J1885

== ENCOUNTER → 2023-04-29 01:05 | Outpatient (CLI) | payer OTHER, SELFPAY ==
--- NOTE | 2023-04-29 08:15 | DI.MRI_ITS ---
Exam(s) MR LUMBAR SPINE WO EXAM: MR LUMBAR SPINE WO CLINICAL HISTORY: evaluate pathology,LUMBAR BACK PAIN,M54.50. TECHNIQUE: Multiplanar multisequence MRI of the Lumbar spine was performed. COMPARISON: CR,XR XR LUMBAR SPINE COMPLETE from 04/06/2023 FINDINGS: Bones: The last intervertebral disc space is designated the L5/S1 level for the numbering purpose of this ex amination. The vertebral body heights are well maintained. Alignment: Unremarkable. The marrow signal characteristics are unremarkable. Cord: The conus tip ends at the T12 level. It is of normal size and signal intensity. T12-L1: Disc is intact. No focal disc herniation is present. No central spinal canal stenosis.No ne ural foraminal stenosis. L1-2: Disc appears normal. No focal disc herniation is present. No central spinal canal stenosis.N o neural foraminal stenosis. L2-3: Disc appears normal. No focal disc herniation is present. No central spinal canal stenosis.No neural foraminal stenosis. L3-4: Disc appears normal.No focal disc herniation is present. No central spinal canal stenosis.No neural foraminal stenosis. L4-5:Disc appears normal. No focal disc herniation is present. No central spinal canal stenosis.No n eural foraminal stenosis. L5-S1: Moderate to severe loss of disc height. Small endplate osteophytes. Mild circumferential dis c bulging. Facet degenerative changes. No focal disc herniation is present. No central spinal anderson l stenosis. Moderate bilateral neural foraminal stenosis. The visualized SI joints and sacrum are unremarkable. Soft tissues: The paraspinal soft tissues are unremarkable. IMPRESSION: Degenerative disc changes and facet degenerative changes at L5-S1 cause moderate bilateral neural fo raminal narrowing. No evidence of disc herniation at any level. DATA REPOSITORY:
== END ==
PROVIDERS: PCP Nurse Practitioner Family; Visit Provider Nurse Practitioner Family
DX: M51.37 Other intervertebral disc degeneration, lumbosacral region (principal)
CPT/HCPCS: 72148

== ENCOUNTER 2023-11-26 10:28 | Emergency (ER) | payer OTHER, SELFPAY ==
[2023-11-26 10:37] VITALS: BP 121/60; PULSE 85; RESP 14; TEMP 36.4; O2SAT 97
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
--- NOTE | 2023-11-26 11:00 | DI.RAD_ITS ---
Exam(s) XR LUMBAR SPINE AP, LAT EXAM: XR LUMBAR SPINE AP, LAT CLINICAL HISTORY: low back pain. TECHNIQUE: 2D digital imaging was performed. Five views. COMPARISON: MR MR LUMBAR SPINE WO from 04/29/2023 FINDINGS: BONES: No fracture or destructive lesion. Vertebral body heights are maintained. Mild facet hypert rophy identified at L5-S1. DISKS: Severe disc space narrowing at L5-S1. The remaining intervertebral disc spaces are maintained . ALIGNMENT: Lumbar spinal alignment is within normal limits. SOFT TISSUE: Normal. IMPRESSION: Degenerative changes at L5-S1. No acute abnormality. DATA REPOSITORY: RADIATION DOSE DELIVERED:
--- NOTE | 2023-11-26 11:00 | DI.RAD_ITS ---
Exam(s) XR HIP RT COMPLETE AP PELVIS EXAM: XR HIP RT COMPLETE AP PELVIS CLINICAL HISTORY: R hip pain. TECHNIQUE: 2D digital imaging was performed. Two views COMPARISON: CR LUMBAR SPINE COMPLETE from 09/12/2015 FINDINGS: BONES: No acute fracture is present. No bony destructive lesion is seen. JOINTS: No dislocation present. The hip joint spaces are maintained. SI joints are unremarkable. SOFT TISSUE: Surgical clips right lower quadrant. IMPRESSION: No acute abnormality. DATA REPOSITORY: RADIATION DOSE DELIVERED:
[2023-11-26 11:55] VITALS: BP 105/47; PULSE 84; RESP 14; O2SAT 95
[2023-11-26] MEDS: Acetaminophen 500 MG TAB 1000 MG PO (12:02)
[2023-11-26] MEDS: Ketorolac 10 MG TAB PO (12:02)
== END 2023-11-26 12:18 | disposition home or self-care (01) ==
PROVIDERS: Emergency Provider Physician Assistant; PCP Nurse Practitioner Family
DX: S76.011A Strain of muscle, fascia and tendon of right hip, initial encounter (principal); W01.0XXA Fall on same level from slipping, tripping and stumbling without subsequent striking against object, initial encounter; Y93.01 Activity, walking, marching and hiking; Y92.89 Other specified places as the place of occurrence of the external cause
CPT/HCPCS: 99283; 72100; 73502

== ENCOUNTER 2024-01-14 01:52 | Outpatient (CLI) | payer OTHER, SELFPAY ==
--- NOTE | 2024-01-14 07:15 | DI.MRI_ITS ---
Exam(s) MR CERVICAL SPINE WO EXAM: MR CERVICAL SPINE WO CLINICAL HISTORY: no improvement with PT, is actually worse,headache,cervicalgia,m54.2,r51.9 TECHNIQUE: Multiplanar multisequence MRI of the cervical spine was performed without intravenous con trast. COMPARISON: No exams were available for comparison FINDINGS: BONES: Vertebral body heights are maintained. Alignment is normal. Bone marrow signal intensity is wi thin normal limits. Facet degenerative changes noted throughout. CERVICAL CORD: Craniovertebral junction is unremarkable. The cervical cord is normal size and signal intensity. SOFT TISSUES: Unremarkable. C1-2: Degenerative changes at anterior arch articulation with dens. C2-3: No disc herniation or bulge is identified. No evidence of neural foraminal narrowing. No centr al canal stenosis. C3-4: No disc herniation or bulge is identified. Mild right central canal stenosis. C4-5: Mild loss of disc height. Posteriorly projecting disc osteophytes. Severe right neural foramina l narrowing. Mild left neural foraminal narrowing. Mild central canal stenosis. C5-6:Mild loss of disc height and posteriorly projecting disc osteophytes. Mild left neural foraminal narrowing. Severe right neural foraminal narrowing. Narrowing of the AP dimension of the canal and mild impingement on the anterior aspect of the cord. C6-7: Posterior disc osteophytes. Narrowing of the AP dimension of the central canal with apparent i mpingement on the anterior aspect of the cord.. Mild bilateral neural foraminal narrowing. . C7-T1: No disc herniation or bulge is identified. No evidence of neural foraminal narrowing. No signi ficant central canal stenosis. IMPRESSION: Disc osteophytes projecting posterolaterally at C 4 5 through C6-7 causing some narrowing of the AP d imension of the canal and impingement on the anterior aspect of the cord. Bilateral neural foraminal narrowing, greater on the right at these levels. DATA REPOSITORY:
== END 2024-01-14 02:12 ==
LOC: DI 01:52
PROVIDERS: PCP Nurse Practitioner Family; Visit Provider Nurse Practitioner Family
DX: M50.022 Cervical disc disorder at C5-C6 level with myelopathy (principal)
CPT/HCPCS: 72141

== ENCOUNTER 2024-02-23 01:08 | Outpatient (CLI) | payer OTHER, SELFPAY ==
--- NOTE | 2024-02-23 08:25 | DI.MRI_ITS ---
Exam(s) MR UPPER JOINT RT WO EXAM: MR UPPER JOINT RT WO CLINICAL HISTORY: NECK PAIN M54.2 RT ARM PAIN M79.601 TECHNIQUE: Multiplanar multisequence MRI of the shoulder was performed. COMPARISON: MR MR UPPER JOINT RT WO from 02/04/2023 Right shoulder x-rays 11/10/2022 FINDINGS: MARROW:There is no evidence of fracture, Hill-Sachs deformity, nor ominous osseous lesions. There is again noted a degenerative subarticular cyst in the posterior lateral aspect which measures 8 by 6 mm , unchanged. There is a smaller degenerative subarticular cyst again noted in the anterior aspect th e humeral head measuring mm. GLENOHUMERAL JOINT: Minimal degenerative changes. No osteophytes. No degenerative subarticular cyst s in the osseous glenoid. No prominent joint effusion or loose intra-articular bodies evident. ROTATOR CUFF MECHANISM: AC JOINT/ACROMIUM: Widened AC joint again noted, unchanged, related to prior resection of distal clav icle. Mild susceptibility artifact again noted from prior instrumentation. There is no evidence of os acromiale. Supraspinatus: Mild amount of increased signal in the tendon, similar to previous. However, there ar e focal hypointense signal abnormalities at the foot pad insertion site again noted consistent with c alcific tendinitis/tendinosis of the supraspinatus. These calcifications were also evident on plain films of 11/10/2022. In addition, there is a tiny focus of fluid signal abnormality traversing the t endon evident on the sagittal and axial images immediately adjacent to the calcifications and there i s a sliver of overlying fluid within the subacromial-subdeltoid bursa. There is no retraction of the musculotendinous junction and no prominent muscle atrophy. Infraspinatus: Mild tendinitis signal. No tear. No atrophy. Teres Minor: Intact. No evidence of tear nor muscle atrophy. Subscapularis/anterior cuff: Intact. No abnormal signal at the level of the multipennate insertional fibers. No significant tear nor atrophy. BICEPS TENDON: Exhibits normal position within the intertubercular groove. No evidence of tear. No tenosynovitis. LABRUM: There is no abnormal signal in the superior labrum posterior to the biceps attachment site. Posterior labrum appears intact. Mild irregularity of the anterior labrum consistent with possible t earing. No obvious tearing of the inferior glenohumeral ligament. QUADRILATERAL SPACE: No evidence of mass in the region of the axillary nerve and dorsal circumflex hu meral vessels. Visualized triceps muscle at this level appears unremarkable. IMPRESSION: 1. Evidence of prior surgery as discussed above. 2. There is calcific rotator cuff-supraspinatus tendinosis and there is a tiny focus of fluid signal abnormality traversing the supraspinatus tendon at the foot pad insertion site seen only on the sagit kemar and axial images, this adjacent to the calcific tendon deposits. There is a small amount of flui d in the subacromial bursa. This fluid is either related to secondary bursitis and/or indicative of the above finding constituting a tiny full-thickness tear. There is no retraction of the musculotend inous junction and there is no significant muscle atrophy. 3. Mild tendinitis signal in the infraspinatus again noted. No high-grade tear. No atrophy. 4. Biceps tendon is intact. Subtle suggestion of anterior labral tearing on this non arthrogram gia dy. DATA REPOSITORY:
== END 2024-02-23 01:28 ==
LOC: DI 01:09
PROVIDERS: PCP Nurse Practitioner Family; Visit Provider Physician Assistant Medical
DX: M75.31 Calcific tendinitis of right shoulder (principal)
CPT/HCPCS: 73221

== ENCOUNTER 2024-04-13 02:45 | Outpatient (CLI) | payer BC, SELFPAY ==
--- NOTE | 2024-04-13 07:30 | DI.MAMMO_ITS ---
Exam(s) MAMMO SCREENING EXAM: MAMMO SCREENING CLINICAL HISTORY: screening,Z12.39 TECHNIQUE: Bilateral full field digital CC and MLO mammographic images were obtained with 3D tomosyn thesis and utilizing computer aided detection (CAD). COMPARISON: Available for comparison. FINDINGS: Masses/Architectural Distortion: Since the prior examination the patient has undergone a right lumpec tarik. No suspicious masses are seen. No new areas of architectural distortion are seen. Microcalcifications: No suspicious pleomorphic-type are seen. Skin Thickening/Nipple Retraction: None. IMPRESSION: 1. No significant interval change with no specific features of malignancy noted. 2. Unless there is more urgent need, screening mammography is recommended, as per [employer] guidelines. BI-RADS Category 2 - Benign Findings Breast Density - Category B - Scattered areas of fibroglandular density Breast density category C or D implies that the patient has dense breast tissue. Dense breast tissue is very common and is not abnormal but dense breast tissue can make it harder to find cancer on a ma mmogram. Also, dense breast tissue may increase their breast cancer risk. This information about the result of the mammogram report was provided to the patient to raise their awareness. Use this report when you speak with the patient about their risks for breast cancer, which includes their family hist ory. At that time, you may recommend for more screening tests (Ultrasound or MRI) as they might be us eful based on their risk. A negative radiographic report should not delay biopsy if a dominant or clinically suspicious mass is present. Up to ten percent of cancers are not identified on mammography. A negative report may reinforce clinical impression. Adenosis and dense breasts may obscure an underlying neoplasm. False positive reports average 6 to 10%. Patient will receive a letter notifying them of these results.
== END 2024-04-13 03:05 ==
PROVIDERS: PCP Nurse Practitioner Family; Visit Provider Nurse Practitioner Family
DX: Z12.31 Encounter for screening mammogram for malignant neoplasm of breast (principal); R92.323 Mammographic fibroglandular density, bilateral breasts; D24.1 Benign neoplasm of right breast
CPT/HCPCS: 77063; 77067

== ENCOUNTER 2024-04-13 04:08 | Outpatient (CLI) | payer BC, SELFPAY ==
[2024-04-13 12:43] LABS: ALT 24 U/L (14-59); AST 11 U/L (15-37); Albumin 3.8 g/dL (3.4-5.0); Alkaline Phosphatase 78 U/L (46-116); Anion Gap 8.4 mmol/L (3-11); BUN 19 mg/dL (7-18); Bilirubin, Total 0.19 mg/dL (0.2-1.0); CO2 26.6 mmol/L (21.0-32.0); Calculated LDL 124 mg/dL (<100); Chloride 108 mmol/L (98-107); Cholesterol 215 mg/dL (<200); Estimated GFR 62.91 (mL/min/1.73m2); Glucose 122 mg/dL (74-106); HDL Cholesterol 50 mg/dL (40-60); Sodium 143 mmol/L (136-145); Total Protein 7.8 g/dL (6.4-8.2); Triglyceride 205 mg/dL (<150)
== END 2024-04-13 04:09 | disposition home or self-care (01) ==
LOC: LBO 04:08
PROVIDERS: PCP Nurse Practitioner Family; Visit Provider Nurse Practitioner Family
DX: E78.5 Hyperlipidemia, unspecified (principal)
CPT/HCPCS: 36415; 80053; 80061

== ENCOUNTER 2024-07-29 00:11 | Outpatient (CLI) | payer BC, SELFPAY ==
--- NOTE | 2024-07-29 | DI.MRI_ITS ---
Exam(s) MR UPPER JOINT RT WO EXAM: MR UPPER JOINT RT WO CLINICAL HISTORY: Incomplete rotator cuff tear or rupture, rt shoulder, TECHNIQUE: Multiplanar multisequence MRI of the shoulder was performed. COMPARISON: CR XR SHOULDER RT COMPLETE 2+V from 11/10/2022 MR MR UPPER JOINT RT WO from 02/23/2024 FINDINGS: MARROW:There is no evidence of fracture, Hill-Sachs deformity, nor ominous osseous lesions. Again not ed is evidence of previous surgery with change postsurgical widening of the AC joint and susceptibili ty artifact along the surgical tract, similar to previous GLENOHUMERAL JOINT: Minimal degenerative changes. No osteophytes and no degenerative subarticular cy sts evident in the osseous glenoid. Degenerative subarticular cyst is again noted in the posterolate ral aspect of the humeral head. Minimal amount of increased joint fluid. No prominent joint effusio n. There are no loose intra-articular bodies evident in the GH joint. There is no evidence of os ac romial. ROTATOR CUFF MECHANISM: AC JOINT/ACROMIUM: See above. There is no evidence of os acromiale. Supraspinatus: The appearance of the supraspinatus tendon is similar to previous. There is only mild increased tendon signal. The previously described focal hypointense signal abnormalities of the goyo t pad insertion site are again noted and consistent with calcific tendinitis/tendinosis, as evident o n prior plain films of October 2022. The previously described tiny focus of fluid signal within the t endon adjacent to the calcification is unchanged. There is a small amount of fluid in the subacromia l bursa, similar in amount to the prior MRI scan of 02/23/2024. There is no retraction musculotendin ous junction. There is no significant muscle belly atrophy. Infraspinatus: Similar to previous with mild insertional tendinitis signal. No high-grade tear. No atrophy. Teres Minor: Intact. No evidence of tear nor muscle atrophy. Subscapularis/anterior cuff: Intact. No abnormal signal at the level of the multipennate insertional fibers. No significant tear nor atrophy. BICEPS TENDON: Exhibits normal position within the intertubercular groove. No evidence of tear. No tenosynovitis. LABRUM: There is no signal abnormality in the superior labrum posterior to the biceps insertion site. Posterior labrum is intact. Inferior labrum appears intact. Mild irregularity of the anterior lab rum is unchanged and may represent mild tearing. There is no evidence of paralabral cyst. QUADRILATERAL SPACE: No evidence of mass in the region of the axillary nerve and dorsal circumflex hu meral vessels. Visualized triceps muscle at this level appears unremarkable. IMPRESSION: 1. There is minimal if any significant change when compared to the prior MRI scan of February 2024. There is evidence of prior surgery again evident, including decompression-widening of the AC joint wh ich appears unchanged. 2. Calcific rotator cuff supraspinatus tendinosis and there is a small focus of thin fluid abnormalit y traversing the tendon at the foot pad insertional aspect and a small amount of fluid in the subacro mial bursa, similar to previous. Findings may constitute a tiny thin full-thickness tear with overly ing fluid in the bursa or partial-thickness tearing with overlying bursitis. 3. Mild tendinitis signal in the infraspinatus is unchanged from previous. 4. Subtle suggestion of anterior labral tearing unchanged from previous. Biceps tendon remains inta ct and nondisplaced. 5. Minimal if any significant degenerative changes in the glenohumeral joint. No prominent joint ef fusion or intra-articular loose bodies in the glenohumeral joint. DATA REPOSITORY:
== END 2024-07-29 00:31 ==
LOC: DI 00:11
PROVIDERS: PCP Nurse Practitioner Family; Visit Provider Orthopaedic Surgery
DX: M75.31 Calcific tendinitis of right shoulder (principal)
CPT/HCPCS: 73221

== ENCOUNTER 2024-08-03 02:05 | Outpatient (CLI) | payer BC, SELFPAY ==
--- NOTE | 2024-08-03 07:30 | DI.RAD_ITS ---
Exam(s) XR FOOT RT COMPLETE EXAM: XR FOOT RT COMPLETE CLINICAL HISTORY: Right foot pain,m79.671. TECHNIQUE: 2D digital imaging was performed. Three views. COMPARISON: No exams were available for comparison FINDINGS: BONES: No acute fracture is present. No bony destructive lesion is seen. Small enthesophyte at Achil les insertion on the calcaneus. JOINTS: No dislocation present. Mild degenerative changes 1st MTP joint with mild periarticular spur ring but no significant joint space narrowing. Plantar arch is maintained. Mild hammertoe deformities SOFT TISSUE: Normal. IMPRESSION: Mild degenerative changes. DATA REPOSITORY: RADIATION DOSE DELIVERED:
== END 2024-08-03 02:25 ==
LOC: DI 02:05
PROVIDERS: PCP Nurse Practitioner Family; Visit Provider Podiatrist
DX: M79.671 Pain in right foot (principal)
CPT/HCPCS: 73630

== ENCOUNTER 2024-08-10 09:52 | Day surgery (SDC) | payer BC, SELFPAY ==
[2024-08-10 10:05] VITALS: BP 146/67; PULSE 83; RESP 18; TEMP 36.1; O2SAT 99
--- NOTE | 2024-08-10 10:15 | W.ANESPRE ---
General Info Date of Service Date Performed: 08/10/24 Height: 5 ft 5.5 in Weight: 95.9 kg Body Mass Index (BMI): 34.6 Surgical Procedure: Operation Date: 08/10/24 11:05 Proposed Procedure Side Surgeon reinier Reyes MD Meds Allergies and Home Medications Allergies Allergy/AdvReac Type Severity Reaction Status Date / Time No Known Allergies Allergy Verified 08/10/24 10:08 Home Medication ?Medication ?Instructions ?Recorded [id number]-[id number]-llzg-lutein 1 ea PO QAM 07/30/12 tablet (ESSENTIAL Balance with Lutein) trazodone 100 mg tablet 300 mg PO HS #60 tab-caps 05/29/16 methylphenidate HCl 10 mg tablet 10 mg PO ONCE 02/11/23 methylphenidate HCl 30 mg 30 mg PO DAILY 02/11/23 capsule,extended release (40-60) sprinkle aripiprazole 2 mg tablet (Abilify) 2 mg PO DAILY 03/23/23 duloxetine 60 mg capsule,delayed 120 mg (2 x 60 mg) PO DAILY #180 12/02/23 release caps acetaminophen 500 mg capsule 1,000 mg PO Q6H PRN 03/21/24 fluvoxamine 100 mg 200 mg PO QHS 03/21/24 capsule,extended release 24 hr clindamycin phosphate 1 % topical 1 applic topical BID PRN 03/30/24 gel hidradenitis suppurativa #60 grams tobramycin 0.3 %-dexamethasone 0.1 1 drp ophthalmic (eye) QID #5 mL 04/22/24 % eye drops,suspension bisacodyl 5 mg tablet,delayed 5 mg PO ONCE #4 tabs 07/21/24 release (Dulcolax (bisacodyl)) lamotrigine 100 mg tablet 100 mg PO BID 07/21/24 (Lamictal) polyethylene glycol 3350 17 17 g PO ONCE #238 grams 07/21/24 gram/dose oral powder rosuvastatin 10 mg tablet 10 mg PO DAILY #90 tabs 08/09/24 Current Visit Medications: Current Medications Generic Name Dose Route Start Last Admin Trade Name Freq PRN Reason Stop Dose Admin Ringer's Solution 1,000 mls @ 80 mls/hr 08/10/24 06:00 IV 08/10/24 23:59 INFUSION MELLY IV Miscellaneous Supplies 1 each 08/10/24 06:00 Iv Access IV 08/10/24 23:59 DIRECTED MELLY Sodium Chloride 0 ml 08/10/24 06:00 Normal Saline Flush 10 Ml Syr IV 08/10/24 23:59 PRN PRN Sodium Chloride 0 ml 08/10/24 06:00 Normal Saline 10 Ml Vial IJ 08/10/24 23:59 DIRECTED PRN Sterile Water 0 ml 08/10/24 06:00 Water,Injection,Sterile 10 Ml Vial IJ 08/10/24 23:59 DIRECTED PRN PFSH Active Problems Active Problems: Problem Status Onset Code Achilles tendon contracture, right Acute M67.01 Metatarsalgia, right foot Acute M77.41 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 Acute G57.61 Carpal tunnel syndrome of right wrist Acute G56.01 BPPV (benign paroxysmal positional vertigo) Acute H81.10 Suppurative hidradenitis Acute L73.2 Entropion of left lower eyelid Acute H02.005 Tendonitis of long head of biceps brachii of right shoulder Acute M75.21 Calcific tendinitis of right shoulder Acute M75.31 Frequent falls Acute R29.6 Prediabetes Acute R73.03 Atypical ductal hyperplasia of right breast Acute N60.91 Hyperlipidemia Acute E78.5 Polymyalgia rheumatica Acute M35.3 Tubular adenoma of colon Acute D12.6 Hyperplastic colon polyp Acute K63.5 Acute diverticulitis Acute K57.92 Lumbosacral spondylosis without myelopathy Acute M47.817 Cervicalgia Acute M54.2 Medical History Medical History Corneal abrasion Bilateral shoulder pain [place] [facility] [place] partial mastectomy/lumpectomy Encounter for screening colonoscopy COVID-19 03/2021, minimal symtoms ADD (attention deficit disorder) Managed by psychiatry-on generic Ritalin as of 03/2021 Personal history of nicotine dependence As of March 2021 about a 31-01-pdlc-year history of smoking, patient declines CT lung cancer screening CAP (community acquired pneumonia) Shoulder pain, acute Screening due Bipolar disorder PTSD (post-traumatic stress disorder) Pt. states no potential triggers at this time Low back pain Cellulitis Gastro-esophageal reflux Primary fibromyalgia syndrome Panic attack Hot flash, menopausal po estrogen therapy: Depressive disorder (06/30/08) Managed by psychiatry Surgical History Surgical History History of colonoscopy (~07/2021) Hx of appendectomy pt reports 2 appendectomy 2 years ago shoulder surgery right Ligation of fallopian tube Tonsillectomy and adenoidectomy Open Carpal Tunnel release (~11/2006) B/L Vaginal hysterectomy (12/04/05) Tobacco Smoking/Tobacco Use Status: Current every day Tobacco Type: cigarettes Smoking packs per day: 0.5 Smoking cigarettes per day: 10.0 Years smoked: 48 Smoking pack-years: 24.00 Passive smoking exposure: No Second hand exposure: Yes Alcohol Alcohol Intake: current Alcohol intake frequency: holidays/special occasions only Alcohol type: hard liquor Substance Use Substance use: Never Substance use type: does not use Details: alcohol: over a month Vital Signs and Lab Results Vital Signs Most Recent Vital Signs in EMR: Most Recent Vital Signs Temp Pulse Resp BP Pulse Ox 36.1 C L 83 18 146/67 H 99 08/10/24 10:05 08/10/24 10:05 08/10/24 10:05 08/10/24 10:05 08/10/24 10:05 Lab Results Blood Type / Crossmatch: No Data to Display Complete Blood Count: No Data to Display Complete Metabolic Panel: No Data to Display Liver Function Panel: No Data to Display Coagulation Panel: No Data to Display Cardiac Panel: No Data to Display Arterial Blood Gas: No Data to Display Venous Blood Gas: No Data to Display Pancreas Panel: No Data to Display Thyroid Panel: No Data to Display Infectious Disease: No Data to Display Blood Cultures: No Data to Display Toxicology Panel: No Data to Display Imaging and Studies Imaging and Studies Study information below may be from another EMR and interpreted by another provider. Please see original notes in EMR for more complete details. Stress Test Summary: 2013: negative for ischemia. Anesthesia Assessment and Plan Anesthesia History Personal History: No History of Anesthesia Complications Family History: Family History Unknown Exercise Tolerance Exercise Tolerance: Metabolic Equivalents>4 Pertinent Negatives Pertinent Negatives: No Symptoms of GERD, No Major Cardiovascular Symptoms or Complaints and No Major Pulmonary Symptoms or Complaints Cardiac & Pulmonary Exam Cardiac Exam: Normal S1/S2 Heart Sounds Pulmonary Exam: Clear Bilateral Breath Sounds Implantable Cardiac Device Does patient have a Pacemaker or an ICD?: No Airway Exam Known Difficult Airway: No Mallampati Class: 2 Mouth Opening: Normal (> 3cm) Thyromental Distance: Greater than 3 cm Neck Range of Motion: Full ROM Neck Circumference: Normal Teeth Condition: Normal Dentition and Loose or Chipped (#13 and #14 loose per patient) ASA Classification ASA Score: ASA 2 Emergency Case?: No NPO Status NPO Status: NPO Clears >2 hours, Solids >8 hours Anesthesia Plan Resuscitation Status: Full Code Anesthesia Technique: General Anesthesia Airway Planned: Natural Airway Monitors Used: Standard Monitors Preoperative Comments:: 64 y/o female with history of PTSD, Bipolar disorder, GERD, prediabetes, HLD, suppurative hidradenitis and polymyalgia rheumatica presents for colonoscopy screening. Her last screening was in 2021, which was remarkable for tubular adenomatous polyps x 9 and hyperplastic x 5.
[2024-08-10] MEDS: Lactated Ringers 1,000 ML 80 ML IV (10:29)
--- NOTE | 2024-08-10 10:29 | W.COLOREPORT ---
Date of service: 08/10/24 Time of Service: 10:29 Colonoscopy Report Procedure Description: PROCEDURES PERFORMED: 1. Colonoscopy with cold forceps polypectomy x1 2. Hot snare polypectomy x4 3. Ablation/fulguration/destruction of colon polyps x 5 PREOPERATIVE DIAGNOSIS: Surveillance colonoscopy, colon polyps POSTOPERATIVE DIAGNOSIS: Colorectal polyps, sigmoid diverticulosis, sigmoid fibrosis, grade 1 internal hemorrhoids SURGEON: Nikita Reyes MD INDICATION FOR PROCEDURE: the patient is a 64-year-old woman with multiple adenomatous polyps removed on her last colonoscopy. FINDINGS: Normal terminal ileum. Polyps: In the ascending colon a 2-3 mm sessile polyp was removed with cold forceps technique. In the transverse colon, a 3-5 mm sessile polyp was removed hot snare technique. Further along in the transverse colon another 3-5 mm sessile polyp was removed with hot snare technique. In the sigmoid colon a 3-5 mm sessile polyp was removed with hot snare. And in the proximal rectum another 3-5 mm sessile polyp was removed with hot snare. There were five 2-3 mm flat polyps from the transverse to the sigmoid colon that were ablated/destroyed with the tip of the hot snare. There was significant diverticular disease in the sigmoid colon. There is no stricture or active inflammation but there is notable fibrosis in this region. Grade 1 internal hemorrhoids are present in the rectum. SURVEILLANCE interval/FOLLOW-UP: Repeat in 3 years. SPECIMENS: Yes EBL: Minimal COMPLICATIONS: None QUALITY of prep: Excellent Procedure in detail: The patient gave written consent and was in agreement with the indications, the potential risks as well as the benefits of the procedure. They were taken to the endoscopy suite and laid in the left lateral decubitus position. A timeout was performed and anesthesia was administered which was tolerated well. I started the procedure. Digital rectal and visual examination was performed and grossly within normal limits. A well-lubricated flexible colonoscope was then introduced and passed without any notable difficulty all the way to the cecum identified by the ileocecal valve and the appendiceal orifice. The terminal ileum was briefly, superficially intubated and looked normal. The scope was then slowly withdrawn with the above-noted findings. The patient tolerated the procedure well and was taken to the PACU in hemodynamically stable condition.
--- NOTE | 2024-08-10 10:29 | W.PM.DSUDISC ---
Date of service: 08/10/24 Discharge Plan Disposition Patient Disposition: Home Condition: Good Discharge Details Attending Provider: Stephon Reyes Primary Care Provider: Justin Galvez Home Meds and New Rx's Prescriptions: No Action methylphenidate HCl 10 mg tablet 10 mg PO ONCE Rx Instructions: extended release 20 mg extended for total of 30mg in am 10mg prn in afternoon methylphenidate HCl 30 mg cap,ER sprinkle,biphasic 40-60 30 mg PO DAILY aripiprazole [Abilify] 2 mg tablet 2 mg PO DAILY clindamycin phosphate 1 % gel 1 applic topical BID PRN (Reason: hidradenitis suppurativa) Qty: 60 0RF bisacodyl [Dulcolax (bisacodyl)] 5 mg tablet,delayed release (DR/EC) 5 mg PO ONCE Qty: 4 0RF Rx Instructions: Take per colonoscopy instructions provided by ordering providers office polyethylene glycol 3350 17 gram/dose powder 17 g PO ONCE Qty: 238 0RF Rx Instructions: Take per colonoscopy instructions provided by ordering providers office ESSENTIAL Balance with Lutein 1 EACH tablet 1 ea PO QAM trazodone 100 MG tablet 300 mg PO HS Qty: 60 Rx Instructions: 2 TABS AT BEDTIME duloxetine 60 mg capsule,delayed release(DR/EC) 120 mg PO DAILY Qty: 180 4RF fluvoxamine 100 mg capsule,extended release 24hr 200 mg PO QHS acetaminophen 500 mg capsule 1,000 mg PO Q6H PRN tobramycin-dexamethasone 0.3-0.1 % drops,suspension 1 drp ophthalmic (eye) QID Qty: 5 0RF rosuvastatin 10 mg tablet 10 mg PO DAILY Qty: 90 4RF Patient Comments: pt. states it has not been started lamotrigine [Lamictal] 100 mg tablet 100 mg PO BID Patient Comments: once a day 100 mg Discharge Instructions Additional Instructions: FINDINGS: Multiple polyps again found and removed. Most of them are small or medium in size. Nothing to worry about. You do need to come back in 3 years where it is anticipated that you will probably have more that need to be removed. You have diverticular disease throughout your sigmoid colon, this is very common, benign, and nothing needs to be done about it. You do have mild hemorrhoid disease which is also very common and benign and nothing needs to be done about it. Activity:: Activity as Tolerated Diet:: As Tolerated Discharge Orders Discharge Orders: Discharge Order (Routine); Ordered 08/10/24 Ordered By: Stephon Reyes
[2024-08-10 10:37] VITALS: BMI 34.6
--- NOTE | 2024-08-10 10:52 | BOWEL_PTH ---
PATIENT: Wendy Quezada LOC: [facility] U#:[id number] AGE/SX: 64/F ROOM: RE08/10/[address]: Stephon Reyes : 1960 BED: DIS: 08/10/2024 SPEC #: [id number] RECD: 08/10/24 12:55 STATUS: JOELLEN RE #: [id number] TRACY: 08/10/24 10:[address]: Stephon Reyes DEPT: Surgical Specimen RECD BY: Georgiana Reyes ENTERED: 08/10/24 12:57 SP TYPE: Bowel OTHR DR: Justin Ca DNP Tissues: 1 - BIOPSY BOWEL 2 - BIOPSY BOWEL 3 - BIOPSY BOWEL 4 - BIOPSY BOWEL 5 - BIOPSY BOWEL Procedures: GROSS AND MICRO LEVEL 4 Comments: [id number]
[2024-08-10 11:22] VITALS: BP 111/50; PULSE 72; RESP 16; TEMP 36.5; O2SAT 97
[2024-08-10 11:47] VITALS: BP 100/59; PULSE 69; RESP 20; TEMP 36.3; O2SAT 97
--- NOTE | 2024-08-10 11:47 | W.ANESPOSTOP ---
Postoperative Evaluation Date, Time and Location Date Performed: 08/10/24 Time Performed: 11:22 Patient Location: Day Surgery Unit Vital Signs Most Recent Imported Vital Signs: Most Recent Vital Signs Temp Pulse Resp BP Pulse Ox 36.5 C 72 16 111/50 L 97 08/10/24 11:22 08/10/24 11:22 08/10/24 11:22 08/10/24 11:22 08/10/24 11:22 Pain Score Most Recent Pain Score: Most Recent Pain Score Pain Level 0 08/10/24 11:22 Assessment Mental Status: Awake (Alert & Oriented to Patient Baseline) Airway and Respiratory Function: Patent airway with normal (patient baseline) respiratory exam Cardiovascular Function: Hemodynamically Stable Hydration Status: Adequately Hydrated Nausea & Vomiting: No Nausea or Vomiting Pain: Pt. Denies Any Pain Peripheral Nerve Block: Patient did not receive a nerve block
== END 2024-08-10 12:25 | disposition home or self-care (01) ==
PROVIDERS: PCP Nurse Practitioner Family; Visit Provider Student in an Organized Health Care Education/Training Program
PROC: 0DJD8ZZ Inspection of Lower Intestinal Tract, Via Natural or Artificial Opening Endoscopic (ICD-10-PCS; CPT 45378; principal; 2024-08-10 11:00)
DX: Z12.11 Encounter for screening for malignant neoplasm of colon (principal); K64.0 First degree hemorrhoids; K57.30 Diverticulosis of large intestine without perforation or abscess without bleeding; D12.2 Benign neoplasm of ascending colon; K62.1 Rectal polyp; D12.3 Benign neoplasm of transverse colon; D12.5 Benign neoplasm of sigmoid colon
CPT/HCPCS: 45388; 45380; 45385; 88305; J2003; J2704

== ENCOUNTER 2024-08-31 14:28 | Outpatient (CLI) | payer BC, SELFPAY ==
[2024-08-31 14:56] LABS: HCT 47.1 % (36.0-46.0); HGB 15.2 g/dL (11.2-15.7); MCH 30.5 pg (27.0-33.0); MCHC 32.3 % (32.0-36.0); MCV 94 fL (80-95); MPV 9.6 fL (8.0-11.0); Platelet Count 289 10^3/uL (130-400); RBC 4.99 10^6/uL (3.93-5.22); RDW 13.2 % (11.7-14.6); WBC 8.46 10^3/uL (4.4-10.8)
[2024-08-31 16:29] LABS: Hemoglobin A1C 5.9 % (<5.7)
[2024-08-31 16:41] LABS: ALT 31 U/L (14-59); AST 10 U/L (15-37); Albumin 3.8 g/dL (3.4-5.0); Alkaline Phosphatase 94 U/L (46-116); Anion Gap 7.9 mmol/L (3-11); BUN 21 mg/dL (7-18); Bilirubin, Total 0.3 mg/dL (0.2-1.0); CO2 30.1 mmol/L (21.0-32.0); Calcium 9.1 mg/dL (8.5-10.1); Chloride 104 mmol/L (98-107); Estimated GFR 62.91 (mL/min/1.73m2); Ferritin 155 ng/mL (8-252); Glucose 93 mg/dL (74-106); Sodium 142 mmol/L (136-145); Total Protein 7.9 g/dL (6.4-8.2)
== END 2024-08-31 14:29 | disposition home or self-care (01) ==
LOC: LBO 14:32
PROVIDERS: PCP Nurse Practitioner Family; Visit Provider Obstetrics & Gynecology
DX: N95.1 Menopausal and female climacteric states; F39 Unspecified mood [affective] disorder; R61 Generalized hyperhidrosis; R53.83 Other fatigue; N93.9 Abnormal uterine and vaginal bleeding, unspecified
CPT/HCPCS: 36415; 80053; 85027; 82728; 83036; 84443

== ENCOUNTER 2024-12-21 12:27 | Outpatient (CLI) | payer BC, SELFPAY ==
--- NOTE | 2024-12-21 13:00 | DI.RAD_ITS ---
Exam(s) XR SHOULDER RT COMPLETE 2+V EXAM: XR SHOULDER RT COMPLETE 2+V CLINICAL HISTORY: right shoulder pain, M25.511. TECHNIQUE: 2D digital imaging was performed. COMPARISON: Prior x-rays of 10/21/2022 FINDINGS: 3 views No evidence of fracture or dislocation glenohumeral joint. However, there is a calcific density extending cephalad from the superior surface of the greater tuberosity. On the study of 2 years ago there were independent calcific densities at this level. They might have coalesced in the interval since the October 2022 images. There are no obvious degenerative changes in the actual glenohumeral joint. Widened AC joint again noted which is most probably postsurgical. Bone density is normal. IMPRESSION: There is a bony excrescence off the superior aspect of the greater tuberosity which measures approximately 9 x 5 mm. This is similar location to the previously present independent calcifications in soft tissues at this level seen on x-rays of 11/10/2022. Correlation with any interval procedure is rec ommended. DATA REPOSITORY: RADIATION DOSE DELIVERED:
== END 2024-12-21 12:47 ==
LOC: DI 12:28
PROVIDERS: PCP Nurse Practitioner Family; Visit Provider Physician Assistant
DX: M25.511 Pain in right shoulder (principal); R93.89 Abnormal findings on diagnostic imaging of other specified body structures
CPT/HCPCS: 73030